=== PATIENT | female | born 1940 | race Caucasian/White ===

== ENCOUNTER 2025-04-18 19:56 | Inpatient (IN) | payer MEDICARE ==
[~2025-04-18] VITALS: Ht 167.6 cm; Wt 64.9 kg
[~2025-04-18 19:56] MED LIST: BUPROPION XL150 MG PO; CITALOPRAM HBR20 MG PO; OMEPRAZOLE20 MG PO; SYNTHROID88 MCG PO; ZOCOR20 MG PO
[2025-04-18 20:29] LABS: BASOPHILS 0.5 % (0.1-1.2); EOSINOPHILS 0.9 % (0.7-5.8); LYMPHOCYTES 11.5 % (19.3-51.7); MCH 28.7 PG (25.6-32.2); MCHC 33.1 g/dL (32.2-35.5); MCV 86.8 fL (79.4-94.8); MONOCYTES 7.4 % (4.7-12.5); NEUTROPHILS 79.4 % (34.0-71.1); RBC 4.32 M/uL (3.93-5.22)
[2025-04-18 20:36] LABS: ALT (SGPT) 15.0 U/L (14-59); AST (SGOT) 13.0 U/L (15-37); GLOMERULAR FILTRATION RATE,EST 42.0 mL/min (>60); PROTEIN, TOTAL 6.2 g/dL (6.4-8.2); UREA NITROGEN 21.0 mg/dL (7-18)
[2025-04-18] MEDS ORDERED: LACTATED RINGER'S 1,000 ML IV ONE (21:00)
[2025-04-18] MEDS ORDERED: LACTATED RINGER'S 1,000 ML IV SCH ×2 (22:00→22:15)
[2025-04-18] MEDS ORDERED: fentaNYL citrate 100 MCG/2 ML VIAL IV ONE (22:00)
[2025-04-18] MEDS ORDERED: PANTOPRAZOLE SODIUM 40 MG TABEC PO ONE (22:00)
[2025-04-18] MEDS ORDERED: SUCRALFATE 1 GM TAB PO ONE (22:00)
[2025-04-18] MEDS ORDERED: HYDROmorphone HCL 1 MG/ML SYR IV PRN (22:15)
[2025-04-18 22:17] LABS: BLOOD/HGB, URINE NEGATIVE (Negative); KETONE, URINE TRACE (Negative); LEUK ESTERASE, URINE NEGATIVE (negative); NITRITE, URINE NEGATIVE (negative)
[2025-04-18 22:41] VITALS: BP 145/83
--- NOTE | 2025-04-18 23:31 | NUR ---
THIS RN TO ED APPROX 2230 TO RECEIVE BEDSIDE REPORT. PT TX TO ROOM 112 VIA STRETCHER BY THIS RN. PT ALERT AND ORIENTED. ABLE TO TRANSFER SELF FROM STRETCHER TO BED. VS OBTAINED. IVF INFUSING WNL. ADMISSION COMPLETE. PT REPORTS ABD PAIN IMPROVED AFTER PRN ADMIN. NO C/O NAUSEA AT THIS TIME. BOWEL TONES ACTIVE. ABD SOFT. PT NPO. VERBALIZES UNDERSTANDING. ORAL CARE SUPPLIES PROVIDED. PT ORIENTED TO ROOM AND NURSE CALL LIGHT. PT DENIES QUESTIONS OR CONCERNS. CALL LIGHT IN REACH. BED ALARM FOR SAFETY.
[2025-04-19] VITALS (13 sets, daily range): BP systolic 120–152; BP diastolic 57–80
--- NOTE | 2025-04-19 00:47 | NUR ---
PT RESTING IN BED WITH EYES CLOSED. RESPIRATIONS EVEN. CALL LIGHT IN REACH.
--- NOTE | 2025-04-19 02:15 | NUR ---
CALL LIGHT ANSWERED. PT UP TO BR WITH FWW AND SBA TO VOID. GAIT STEADY. BACK TO BED, JINA WELL. NO C/O PAIN OR NAUSEA AT THIS TIME. PT REPORTS TENDERNESS/PAIN IN LEFT AC WHERE IV IS PLACED. DIME SIZE BRUISE NOTED AT INSERTION SITE. IV DC'D PER PT REQUEST. TIP INTACT. 20G PLACED IN RIGHT FOREARM X 1 ATTEMPT. PT JINA WELL. IVF RESUMED. NO FURTHER NEEDS AT THIS TIME. CALL LIGHT IN REACH. BED ALARM FOR SAFETY.
--- NOTE | 2025-04-19 04:53 | NUR ---
PT RESTING IN BED WITH EYES CLOSED. RESPIRATIONS EVEN. CALL LIGHT IN REACH.
[2025-04-19 05:32] LABS: BASOPHILS 0.8 % (0.1-1.2); EOSINOPHILS 1.8 % (0.7-5.8); LYMPHOCYTES 20.4 % (19.3-51.7); MCH 28.8 PG (25.6-32.2); MCHC 33.0 g/dL (32.2-35.5); MCV 87.2 fL (79.4-94.8); MONOCYTES 10.1 % (4.7-12.5); NEUTROPHILS 66.7 % (34.0-71.1); RBC 3.99 M/uL (3.93-5.22)
--- NOTE | 2025-04-19 05:39 | NUR ---
LAB IN FOR MORNING DRAW. PT UP TO BR WITH FWW AND SBA TO VOID AN UNMEASURED AMOUNT BACK TO BED, JINA WELL. REPORTS ABD PAIN TOLERABLE 2/10. DENIES NAUSEA. PREVIOUS IV SITE IN LEFT AC BEGAN BLEEDING A SMALL AMOUNT WHILE PT UP TO BR. THIS RN HELD PRESSURE TO SITE FOR SEVERAL MINUTES UNTIL BLEEDING NO LONGER NOTED THEN WRAPPED SITE IN GUAZE AND [place]. VS AND I&O OBTAINED. PT DENIES FURTHER NEEDS. CALL LIGHT IN REACH.
[2025-04-19 05:48] LABS: ALT (SGPT) 17.0 U/L (14-59); AST (SGOT) 13.0 U/L (15-37); GLOMERULAR FILTRATION RATE,EST 53.0 mL/min (>60); PROTEIN, TOTAL 5.6 g/dL (6.4-8.2); UREA NITROGEN 17.0 mg/dL (7-18)
--- NOTE | 2025-04-19 06:47 | NUR ---
CALL LIGHT ANSWERED. PT INCONTINENT OF LARGE AMOUNT LIQUID BROWN BM. UP TO BR WITH FWW AND SBA. PT ABLE TO DO OWN KASIA CARE. CLEAN GOWN, BRIEF, AND SOCKS PROVIDED. BACK TO BED. PT REPORTS ABD PAIN/HEADACHE PAIN 03/09. PRN FOR PAIN ADMIN PER EMAR. NO FURTHER NEEDS. CALL LIGHT IN REACH.
--- NOTE | 2025-04-19 07:39 | NUR ---
Patient in bed resting, no distress, respirations non labored.
[2025-04-19] MEDS ORDERED: LEVOTHYROXINE100 MCG PO (07:56)
--- NOTE | 2025-04-19 08:03 | NUR ---
PATIENT LAYING IN BED A WARM WASH CLOTH WAS PROVIDED. PATIENT DECLINED TO GET INTO CHAIR AND BRUSH TEETH. PATIENTS CALL LIGHT IS WITHIN REACH AND NO FURHER NEEDS AT THIS TIME.
[2025-04-19] MEDS ORDERED: SUCRALFATE 1 GM TAB PO SCH ×2 (09:00→16:00)
[2025-04-19] MEDS ORDERED: PANTOPRAZOLE SODIUM 40 MG/10 ML VIAL IV SCH (09:00)
[2025-04-19] MEDS ORDERED: LIDOCAINE HCL 2% 5 ML SDV ONE (09:14)
[2025-04-19] MEDS ORDERED: HYDROmorphone HCL 1 MG/ML SYR IV PRN (09:15)
[2025-04-19] MEDS ORDERED: LACTATED RINGER'S 1,000 ML IV SCH (09:15)
--- NOTE | 2025-04-19 09:16 | NUR ---
UNABLE TO SEE PATIENT AT THIS TIME, TAKEN TO SURGERY.
--- NOTE | 2025-04-19 10:16 | NUR ---
Patient back from EGD study. Patient is awake, alert and oriented x3, no acute distress. Head of bed elevated, airway patent, no respiratory distress noted. Patient oriented to room and call light. Bed alarm intact.
--- NOTE | 2025-04-19 10:24 | NUR ---
UR CLINICAL REVIEW: 2 MN FOR VERSALUS-PER SHALE PLANER OPERATOR MEETS INPT FOR DUODENAL ULCER/HIATAL HERNIA WITH NEED FOR PAIN CONTROL, SURGICAL CONSULT AND POSSIBLE PROCEDURE [facility] INPT 04/19/25 @ 0202 EMAIL SENT TO UPDATE REG CLINICALS FAXED TO [facility] FOR AUTH REVIEW DISCHARGE HOME WHEN MEDICALLY STABLE
--- NOTE | 2025-04-19 10:52 | NUR ---
04/19/25 1052 Mabel Bryson 0942- PT PRESENTS TO PACU, LEFT LATERAL POSITION, NON REACTIVE TO STIMULUS. PT BREATHING EVEN AND NON LABORED, 4L O2 PER NC. LR INFUSING TO RFA IV. ABD SOFT, NON DISTENDED. ALL MONITORS IN PLACE. 0950- PT STARTING TO STIR, OPENS EYES SLIGHTLY, REORIENTED TO TIME AND PLACE, PT BACK TO RESTING. 0952- MOVED TO ROOM AIR AT THIS TIME. 1000- DR WRAY AT BEDSIDE TO DISCUSS FINDINGS. PT WAKES EASILY TO VERBAL STIMULI. DENIES PAIN OR NAUSEA. 1012- PT TAKEN BACK TO ROOM 112 ON MED/SURG, IN ROOM. PT MOVED ACROSS FROM STRETCHER TO BED WITH MEDIA ANALYTICS MANAGER ASSISTANCE. LR TKO TO RFA. VITALS OBTAINED. REPORT AT BEDSIDE TO JUAN SALEH, CARE OF PT TURNED OVER AT THIS TIME.
--- NOTE | 2025-04-19 10:55 | NUR ---
PT NOT AVAILABLE FOR VISIT. PROVIDED PRAYER.
--- NOTE | 2025-04-19 11:04 | NUR ---
ALERT AND ORIENTED IN BED. STATES SHE LIVES IN HOUSE WITH HER . THEY HAVE STAIRS BUT THEY ARE NOT AN ISSUE FOR PATIENT. SHE USES A CANE TO AMBULATE. SHE DRIVES AT [place]. DENIES ANY DIFFICULTY PAYING UTILITIES OR FOR FOOD OR MEDICATIONS. STATES SHE PLANS TO DC TO HOME WITH SPOUSE WHEN MEDICALLY READY. DOES NOT HAVE PCP, DOES NOT WANT CASE MANAGEMENT GETTING HER A PCP BECAUSE SHE HAS NAMES OF PROVIDERS SHE WANTS TO TRY TO SEE, BUT CAN NOT REMEMBER THEIR NAMES AT THIS TIME. NURSING STAFF UPDATED.
--- NOTE | 2025-04-19 11:05 | NUR ---
Patient awake, alert and oriented x3, no distress. Vital signs stable, sp02 99%.
--- NOTE | 2025-04-19 11:13 | NUR ---
PATIENT IS LAYING IN BED. CALL LIGHT IS WITHIN REACH AND NO FURTHER NEEDS AT THIS TIME.
[2025-04-19] MEDS ORDERED: PHARMACY RENAL DOSE ADJUSTMENT 1 DOSE MISC PO SCH (12:00)
--- NOTE | 2025-04-19 13:12 | NUR ---
PATIENT WAS ASSISTED SBA TO THE CHAIR. PATIENTS VITAL SIGNS AND I&OS WERE DONE. PATIENTS CALL LIGHT IS WITHIN REACH AND NO FURTHER NEEDS AT THIS TIME.
--- NOTE | 2025-04-19 13:20 | NUR ---
PT CALLED FOR PAIN MEDICATION R/T NECK PAIN. PT MEDICATED WITH 0.5MG IV DILAUDID. PT WITH C/O WAITING FOR DR. WRAY, NOT WANTING TO STAY AT HOSPITAL ANY LONGER AND "JUST WALKING OUT". PT INSTRUCTED THIS RN WOULD NOT PROVIDE IV PAIN MEDICATION IF HER DEPARTURE WAS IMMINENT. PT AGREED TO STAY, BUT WANTING TO SEE DR. WRAY NOW, INSTRUCTED DR. WRAY WOULD BE COMING TO SEE HER SOON HE WAS ABLE. PT ALSO UPSET I DID NOT HAVE "LITTLE YELLOW PILLS" FOR HER STOMACH. INSTRUCTED PATIENT HER PRIMARY RN WOULD BE IN TO SEE HER AND FOLLOW UP ON HER C/O'S AND PROVIDE ANY ADDITIONAL INFORMATION AVAILABLE.
--- NOTE | 2025-04-19 14:19 | NUR ---
CALL TO DR. GARCIA, PATIENT TO HAVE FENTANYL FOR PAIN.
[2025-04-19] MEDS ORDERED: fentaNYL citrate 100 MCG/2 ML VIAL IV PRN (14:30)
--- NOTE | 2025-04-19 14:33 | NUR ---
PATIENT GIVEN 4MG OF IV ZOFRAN FOR NAUSEA. 12.5 MCG OF IV FENTANYL FOR 5/10 ABD PAIN. PATIENT REPORTS THAT "MY HEAD IS MESSED UP." SHADE PULLED, PATIENT IS IRRITABLE TO VISITING WITH STAFF. PATIENT HAS EMESIS BAG, REPORTS FEELING LIKE SHE SHOULD THROW UP. ENCOURAGED PATIENT TO STOP TAKING IN AYTHING PO FOR NOW.
--- NOTE | 2025-04-19 14:40 | CONS ---
[facility] [address], [place] [address] Signed DATE OF CONSULTATION: 04/19/2025 REQUESTING PHYSICIANS: Dr. Palmer and Dr. Starkey. PROBLEM: Intractable epigastric pain, duodenal ulcer on CT. HISTORY: This 84-year-old white woman lives in [place] and gets much of her health care elsewhere. This includes [place] by Dr. Whaley. She says she came to the hospital with severe epigastric pain. I was called at approximately 11:00 p[address] last night by Dr. Starkey noting that the patient had persistent and worsening epigastric pain starting approximately 10 p.m. the day before without associated vomiting. CT scan was performed which showed complex findings of a thickening of the gastric antrum and the 1st portion of the duodenum and inflammation and edema nearby consistent with gastritis and duodenitis and a broad and deep ulcer ulcer involving the anterior wall of 1st portion of the duodenum (duodenal bulb). Consider 1.6 cm extending through the majority of the duodenal wall without andre perforation. Additionally, a large hiatal hernia was identified with much of the stomach within the intrathoracic space. The patient does describe bloating and fullness long-standing likely related to a chronic significant hiatal hernia. The patient tells me she was due to see a expansion joint finisher in [place] (?) I recommended that the patient be admitted, given PPI medication as well as Carafate as regard to the treatment of duodenal ulcer and consideration for upper endoscopy as well. PAST MEDICAL HISTORY: Notable for long-standing gastroesophageal reflux, hypotension and anxiety. MEDICINES: Include: 1. Omeprazole. 2. Simvastatin. 3. Bupropion. 4. Synthroid. ALLERGIES: She has allergy to morphine. SURGICAL HISTORY: Electronically Signed By: DEBORAH WRAY MD 04/19/25 1440 PATIENT NAME: JUAN DORSEY CONSULTATION DATE OF : 44 REPORT #: [id number] PHYSICIAN: DEBORAH WRAY MD PCP: NO PRIMARY CARE PHYSICIAN REPORT IS CONFIDENTIAL AND NOT TO BE RELEASED WITHOUT AUTHORIZATION [facility] [address], [place] [address] Signed Includes bilateral "lumpectomy" and hysterectomy. She does not smoke or use alcohol particularly. Notably, she was seen in the emergency room at [facility] three years ago and said to have an "infection" related to the abdomen. I suspect this was related to diverticulitis. SOCIAL HISTORY: She is . I am familiar with her on whom I have performed a hernia repair. She lives in [place]. REVIEW OF SYSTEMS: She has improved since admission to the hospital with IV fluids, pain medication and antiulcer treatment. Denies any shortness of breath or cardiac type chest pain. PHYSICAL EXAMINATION: GENERAL: Pleasant white woman, who does not appear to be in distress at this time. BMI is 23.1. NECK: Trachea is midline. She has no crepitus. CHEST: Clear. HEART: Regular without murmur. ABDOMEN: Soft and without focal tenderness or ascites. EXTREMITIES: Show no clubbing, cyanosis, or edema. VITAL SIGNS: On presentation, vital signs showed a pulse of 65, a blood pressure of 157 systolic, temperature 98.1. ASSESSMENT: I have reviewed the CT scan images in detail. I am unable to visualized the extent of the stomach within the intrathoracic space on the coronal images, though the transverse images (axial images) certainly confirm some portion of stomach within the thoracic cavity. The area described as ulceration within the bulbar duodenum is uncertain on my exam. I will need to review it with the radiologist more fully. Nevertheless, I would recommend upper endoscopy be performed to assure this does represent a duodenal ulcer rather than a gastric one, in which case neoplastic change would have to be considered. She is currently on appropriate therapy at this time. It sounds as though she does have significant symptoms even prior to her admission at this time related to intrathoracic stomach and operative reduction of such a problem would certainly be within the realm of possibility. We discussed that as well. There may be added risks of upper endoscopy in her case given the apparently thin walled nature of her bulbar ulcer. All due care will be taken of course to avoid traumatic injury to the ulcer base itself or elsewhere in the stomach. The risk of this including the risk of bleeding, infection, and so forth were reviewed with her, she understands. Electronically Signed By: DEBORAH WRAY MD 04/19/25 1440 PATIENT NAME: JUAN DORSEY CONSULTATION DATE OF : 44 REPORT #: [id number] PHYSICIAN: DEBORAH WRAY MD PCP: NO PRIMARY CARE PHYSICIAN REPORT IS CONFIDENTIAL AND NOT TO BE RELEASED WITHOUT AUTHORIZATION [facility] [address], [place] [address] Signed We will plan to do this morning. Deborah Wray MD JM/MODL /[id number] cc: Dr. Whaley in [place] Dr. Estela Starkey Copies: ~ Electronically Signed By: DEBORAH WRAY MD 04/19/25 1440 PATIENT NAME: CYNTHIA DORSEYCARMELA Nash CONSULTATION DATE OF : 44 REPORT #: [id number] PHYSICIAN: DEBORAH WRAY MD PCP: NO PRIMARY CARE PHYSICIAN REPORT IS CONFIDENTIAL AND NOT TO BE RELEASED WITHOUT AUTHORIZATION
--- NOTE | 2025-04-19 14:40 | OR ---
[facility] [address], [place] [address] Signed DATE OF OPERATION: 04/19/2025 SURGEON: Deborah Wray MD PREOPERATIVE DIAGNOSES: 1. Severe epigastric pain with 1.8 cm deep anterior duodenal bulb ulcer (CT scan). 2. Large complex hiatal hernia (stomach above diaphragm). POSTOPERATIVE DIAGNOSES: 1. Duodenal ulcer with area of bleeding (secured). 2. Complex hiatal hernia. PROCEDURE: Esophagogastroduodenoscopy with control of bleeding with hemoclip and biopsies, stomach and esophagus. ANESTHESIA: Intravenous sedation propofol. Yonathan Santana CRNA. INDICATION: This 84-year-old white woman is a patient of Dr. Palmer who was admitted her from the ER last night with severe epigastric pain. The patient has been on PPI medication for over 30 years and does have episodes of bloating fullness and occasions of mild dysphagia. A CT scan was performed under the direction of Dr. Starkey which showed what was considered a 1.8 cm anterior duodenal bulb ulcer with very thin serosal covering as well as most of the stomach within the intrathoracic area. She was admitted, given intravenous PPI medication and started on Carafate orally. Her symptoms have improved. I saw her earlier this morning and I have recommended upper endoscopy be performed to better affirm the peptic ulcer problem and in particular to assess for other abnormalities of the stomach and assess for H pylori. The risk of bleeding, infection, and most importantly perforation were reviewed with her. She understands and wished to proceed. FINDINGS: Esophagus itself had mild chronic inflammation. Stomach was indeed herniated well above the diaphragm and complicated to negotiate generally speaking. Ultimately, the pylorus was identified and the scope passed through that into the duodenum. There was an ulcerated area in one area of oozing of blood that was bright red with possibly visible vessel. This was secured with a hemoclip. I did not pass the scope far down the duodenum given the radiologic findings. The ulcer, though significant, did not have as Electronically Signed By: DEBORAH WRAY MD 04/19/25 1440 PATIENT NAME: JUAN DORSEY OPERATIVE REPORT DATE OF : 44 REPORT #: [id number] PHYSICIAN: DEBORAH WRAY MD PCP: NO PRIMARY CARE PHYSICIAN REPORT IS CONFIDENTIAL AND NOT TO BE RELEASED WITHOUT AUTHORIZATION [facility] [address], [place] [address] Signed deep as an appearance as I suspected it would based on imaging study. Biopsies of the antrum which showed mild chronic inflammation were obtained as was the esophagus and a CLOtest biopsy also performed which was negative 15 minutes postprocedure. DESCRIPTION OF PROCEDURE: The patient was brought to endoscopy suite, given lidocaine hypopharyngeal anesthesia and placed in lateral decubitus position. She was given intravenous sedation with propofol infusional technique with continuous cardiopulmonary monitoring. A bite block was placed. The Olympus video upper endoscope was passed in the hypopharynx. The vocal cords were normal. Scope was passed in the esophagus which throughout its length was reasonably normal. There was no Jett's epithelium particularly. The scope was advanced to the stomach which was insufflated with air, but with minimal air only so as to minimize chances of perforation of the presumably thin-walled duodenal ulcer. Rugal folds were reasonably normal. Complex anatomy was noted. Ultimately, the pylorus area could be identified with various manipulations and scope gently passed into the duodenal. Immediately noted was ulcerated area which was certainly significant. Pushing the scope beyond this was deemed inadvisable. An area of heaped up mucosa with bright red blood that was slightly dripping was identified. This was secured with a hemoclip completely. Irrigation was undertaken. There was no sign of further bleeding or other problem. There was no sign of actual neoplasia so far as could be told. A biopsy was not obtained. The scope was then withdrawn to the antrum and biopsies taken there for both CHELSIE and pathologic testing. Retroflexed view confirmed the complex nature of the hiatal hernia with essentially all the stomach above the diaphragm. The scope was withdrawn to the distal esophagus where biopsies were obtained and ultimately the midesophagus as well. Scope was removed and the patient was taken to the recovery room in good condition. CONCLUSION DIAGNOSES: 1. Oozing of complex duodenal ulcer secured with hemoclip. 2. Complex hiatal hernia, stomach above the diaphragm. PLAN: We will continue PPI and additionally add Carafate. Full liquid diet would be appropriate. I will ultimately recommend that the hiatal hernia be repaired though would certainly want for the duodenal ulcer to heal entirely first. Relationship between the ulcer and the intact position of the stomach is of uncertain relationship. There may be some affect from the complex hiatal hernia to development of duodenal ulceration, particularly since she has been on a PPI medication continuously. We will review this further. Electronically Signed By: DEBORAH WRAY MD 04/19/25 1440 PATIENT NAME: JUAN DORSEY OPERATIVE REPORT DATE OF : 44 REPORT #: [id number] PHYSICIAN: DEBORAH WRAY MD PCP: NO PRIMARY CARE PHYSICIAN REPORT IS CONFIDENTIAL AND NOT TO BE RELEASED WITHOUT AUTHORIZATION [place] [address] Signed MD TG Yi/MODL /[id number] cc: MD Charles Clay MD Brian Sabowitz, MD Copies: CHARLES RAMOS MD ~ Electronically Signed By: DEBORAH WRAY MD 04/19/25 1440 PATIENT NAME: JUAN DORSEY OPERATIVE REPORT DATE OF : 44 REPORT #: [id number] PHYSICIAN: DEBORAH WRAY MD PCP: NO PRIMARY CARE PHYSICIAN REPORT IS CONFIDENTIAL AND NOT TO BE RELEASED WITHOUT AUTHORIZATION
--- NOTE | 2025-04-19 15:17 | NUR ---
Patient sitting up in chair, she is anxious and reporting throat pain. Scheduled carafate admin at this time. Patient provided with warm blanket and ice pack for comfort. at bedside.
[2025-04-19] MEDS ORDERED: phenoL 177 ML SPRAY MT PRN ×2 (15:45)
[2025-04-19] MEDS ORDERED: SIMVASTATIN40 MG PO (17:04)
--- NOTE | 2025-04-19 17:22 | NUR ---
PATIENT WAS ASSISTED FROM THE CHAIR TO THE BATHROOM TO THE BED. PATIENTS VITAL SIGNS AND I&OS WERE DONE. BRIEF WAS CHANGED. PATIENTS CALL LIGHT IS WITHIN REACH AND NO FUTHER NEEDS AT THIS TIME.
[2025-04-19 18:01] LABS: BASOPHILS 0.4 % (0.1-1.2); EOSINOPHILS 0.9 % (0.7-5.8); LYMPHOCYTES 11.1 % (19.3-51.7); MCH 28.4 PG (25.6-32.2); MCHC 32.0 g/dL (32.2-35.5); MCV 88.8 fL (79.4-94.8); MONOCYTES 6.7 % (4.7-12.5); NEUTROPHILS 80.5 % (34.0-71.1); RBC 4.54 M/uL (3.93-5.22)
--- NOTE | 2025-04-19 18:02 | NUR ---
Patient resting in bed, easily wakes to verbal stimuli. Patient reports she has no pain at this time. She also states "I'm not in pain, i'm just nuts!". Patient encouraged to rest. Bed alarm intact. Iv patent, fluids infusing per order.
--- NOTE | 2025-04-19 18:46 | NUR ---
Patient's son Phillip stopped by to check on patient, updated him regarding plan of care. Patient's at bedside with patient. No further needs, personal supplies and call light within reach.
--- NOTE | 2025-04-19 19:53 | NUR ---
PT RESTING IN BED, RESPIRATION EVEN AND UNLABORED. NO NEEDS NOTED AT THIS TIME. CALL LIGHT IN REACH.
--- NOTE | 2025-04-19 20:34 | NUR ---
GRADUATE STUDIES DEAN CBA PT WITH FWW TO BATHROOM. PT VOIDED AND ASSISTED BACK TO BED. VITALS AND I&O OBTAINED. PT GIVNE WARM BLANKET UPON REQUEST. PT STATES NO FURTHER NEEDS AT THIS TIME. CALL LIGHT WITHIN REACH AND BED ALARM ON.
--- NOTE | 2025-04-19 21:24 | NUR ---
PT IN BED, DUE MEDICATIONS GIVEN ORDERED, NO COMPLAINT OF PAIN. DENIES NEED AT THIS TIME. CALL LIGHT IN REACH.
--- NOTE | 2025-04-19 22:33 | NUR ---
CALL LIGHT ANSWERED. PT NEEDED TO USE BATHROOM. TRACTOR TECHNICIAN SBA/1PA WITH FWW TO BATHROOM. PT VOIDED AND ASSISTED BACK TO BED. PT STATES NO FURTHER NEEDS AT THIS TIME. CALL LIGHT WITHIN REACH AND BED ALARM ON.
--- NOTE | 2025-04-19 23:44 | NUR ---
PT ASLEEP IN BED, RESPIRATIONS EVEN AND UNLABORED. NO NEEDS NOTED AT THIS TIME. CALL LIGHT IN REACH.
[2025-04-20] VITALS (10 sets, daily range): BP systolic 103–151; BP diastolic 42–69
--- NOTE | 2025-04-20 01:40 | NUR ---
IN ROOM IN RESPONSE TO IV PUMP ALARMING, NEW IV BAG HUNG. PATIENT UP TO RESTROOM PER REQUEST WITH MINIMAL SBA TO VOID. BACK TO BED WITHOUT DIFFICULTY, VS OBTAINED AND RECORDED, INTAKE AND OUTPUT DOCUMENTED. FRESH WATER GIVEN PER REQUEST. NO FURTHER NEEDS, BED ALARM ON, CALL LIGHT IN REACH
--- NOTE | 2025-04-20 03:46 | NUR ---
PT RESTING IN BED. RESPIRATIONS EVEN AND UNLABORED. NO NEEDS NOTED AT THIS TIME. CALL LIGHT IN REACH.
--- NOTE | 2025-04-20 05:07 | NUR ---
CALL LIGHT ANSWERED. PT NEEDED TO USE BATHROOM. CAN SBA WITH FWW TO BATHROOM. PT VOIDED AND ASSISTED BACK TO BED. VITALS AND I&O OBTAINED. PT STATES NO FURTHER NEEDS AT THIS TIME. CALL LIGHT WITHIN REACH AND BED ALARM ON.
[2025-04-20 05:34] LABS: BASOPHILS 0.4 % (0.1-1.2); EOSINOPHILS 1.7 % (0.7-5.8); LYMPHOCYTES 22.2 % (19.3-51.7); MCH 28.9 PG (25.6-32.2); MCHC 33.2 g/dL (32.2-35.5); MCV 86.9 fL (79.4-94.8); MONOCYTES 9.4 % (4.7-12.5); NEUTROPHILS 66.1 % (34.0-71.1); RBC 3.67 M/uL (3.93-5.22)
[2025-04-20 05:44] LABS: GLOMERULAR FILTRATION RATE,EST 61.0 mL/min (>60); UREA NITROGEN 11.0 mg/dL (7-18)
--- NOTE | 2025-04-20 06:34 | NUR ---
CALL LIGHT ANSWERED, PATIENT AMBULATED WELL TO RESTROOM WITH MINIMAL SBA AND USE OF FWW. BACK TO BED WITHOUT DIFFICULTY, IV FLUIDS INFUSING WITHOUT DIFFICULTY. PATIENT DENIES FURTHER NEEDS, CALL LIGHT IN REACH
--- NOTE | 2025-04-20 07:21 | NUR ---
Pt report received from THERESE Phillips and THERESE Alvarez. Pt is resting supine in bed with eyes closed, breathing regular, even, and non-labored. White board updated at this time. CPOX on, SPO2 97% on room air. Side rails up x4, call light in reach.
--- NOTE | 2025-04-20 09:45 | NUR ---
PATIENT RESTING IN BED. HOPING TO GO HOME SOON. PATIENT REFUSED US GETTING HER A PCP. PATIENT TO TAKE HER HOME WHEN MEDICALLY CLEARED. NO FUTHER CM NEEDS.
--- NOTE | 2025-04-20 09:50 | NUR ---
PATIENT IN BED AT THIS TIME. PHILIPPE JAEGER CHARTED VITALS AND I&O'S. CALL LIGHT WITHIN REACH, NO FURTHER NEEDS AT THIS TIME.
[2025-04-20] MEDS ORDERED: ALEVE220 MG PO (10:31)
[2025-04-20] MEDS ORDERED: SYMBICORT 80-10.2 GM INH (10:32)
--- NOTE | 2025-04-20 10:32 | NUR ---
MED REC COMPLETE
--- NOTE | 2025-04-20 12:33 | NUR ---
In with pt for IV Pump alarming, complete. New bag of IVF hung and started at ordered rate per emar. IV site is patent. Pt requests hot pack for low back pain from "sitting around". Encouraged pt to ambulate. She states she would like to after lunch. Hot pack provided and wrapped in a towel and placed on pt's right side low back. Call light in reach, family in room, lunch tray on bedside table.
--- NOTE | 2025-04-20 13:59 | NUR ---
In with pt in response to call light. Pt needs to use the toilet. SBA as pt uses FWW (L&T mgmnt) into bathroom to void. Pt desires to walk the hallways afterwards. SBA, l&t mgmnt while pt ambulates the hallway using FWW. Intercepted by PT Dejah at this time. She took over. Pt tolerating ambulation well, no c/o dizziness or light headedness, no increased pain.
--- NOTE | 2025-04-20 14:06 | NUR ---
PATIENT IN CHAIR AT THIS TIME. PATIENT REFUSED SHOWER TODAY. CALL LIGHT WITHIN REACH, NO FURTHER NEEDS AT THIS TIME.
--- NOTE | 2025-04-20 14:29 | NUR ---
PATIENT IN CHAIR AT THIS TIME. OFFICE MOVER CHARTED VITALS AND I&O'S. CALL LIGHT WITHIN REACH, NO FURTHER NEEDS.
--- NOTE | 2025-04-20 16:35 | NUR ---
In with pt for med administration per emar. Pt is sitting up in her bed, visiting with guests. She is in a pleasant mood, laughing and smiling. Pt denies pain, no nausea or vomiting. Pt medicated per emar. Iced water refreshed. Pt provided with coffee, cream and sugar at this time. Call light in reach.
--- NOTE | 2025-04-20 17:10 | NUR ---
Dr. Cunningham in with pt. Pt sitting up in the chair at this time. He advised her that she can advance her diet to regular if tolerated. plating inspector Gabriela had already called the kitchen to order a regular tray for her. Call light in reach.
--- NOTE | 2025-04-20 18:34 | NUR ---
SBA as pt ambulated to the toilet to void (missed the hat). Pt ambulated back to the chair, tolerated activity well, tolerating her dinner well, no reports of nausea or pain. BLE elevated in chair, call light, personal belongings in reach.
--- NOTE | 2025-04-20 19:03 | NUR ---
PATIENT IN CHAIR AT THIS TIME. RECOVERY SPECIALIST CHARTED VITALS AND I&O'S. CALL LIGHT WITHIN REACH, NO FURTHER NEEDS.
--- NOTE | 2025-04-20 19:29 | NUR ---
REPORT RECEIVED FROM DAY SHIFT RN. PATIENT RESTING IN CHAIR. DENIES NEEDS AT THIS TIME. CALL LIGHT IN REACH.
--- NOTE | 2025-04-20 20:05 | NUR ---
PATIENT RESTING IN BED. VS AND I&Os OBTAINED AND RECORDED. PATIENT DENIES NEEDS AT THIS TIME. CALL LIGHT IN REACH. BED ALARM ON.
--- NOTE | 2025-04-20 21:26 | NUR ---
PATIENT RESTING IN BED. SCHEDULED MEDICATION ADMINISTERED. PATIENT DENIES FURTHER NEEDS. CALL LIGHT IN REACH.
[2025-04-20] MEDS ORDERED: ACETAMINOPHEN 500 MG TAB PO PRN (22:45)
--- NOTE | 2025-04-20 23:06 | NUR ---
PATIENT REPORTING 3/10 LOW BACK ACHE FROM "LAYING IN BED FOR 3 DAYS". NIO PLACED FOR PAIN MEDICATION. PRN PAIN MEDICATION ADMINISTERED. PATIENT DENIES FURTHER NEEDS. CALL LIGHT IN REACH.
--- NOTE | 2025-04-20 23:53 | NUR ---
PATIENT RESTING IN BED. DENIES FURTHER NEEDS AT THIS TIME. NO FURTHER NEEDS. CALL LIGHT IN REACH. BED ALARM ON.
--- NOTE | 2025-04-21 01:19 | NUR ---
CALL LIGHT ANSWERED. PATIENT UP TO BATHROOM INDEPENDENTLY TO VOID. PATIENT BACK TO BED. PATIENT HAS NO FURTHER NEEDS. CALL LIGHT IN REACH. BED ALARM ON.
[2025-04-21 04:39] VITALS: BP 140/58
[2025-04-21 04:43] VITALS: BP 140/58
--- NOTE | 2025-04-21 04:46 | NUR ---
CALL LIGHT ANSWERED. PATIENT UP TO BATHROOM INDEPENDENTLY TO VOID. PATIENT BACK TO BED. VS AND I&Os OBTAINED AND RECORDED. PATIENT DENIES NAUSEA OR PAIN. PATIENT DENIES FURTHER NEEDS. BED ALARM ON. CALL LIGHT IN REACH.
[2025-04-21 05:57] LABS: BASOPHILS 0.8 % (0.1-1.2); EOSINOPHILS 3.9 % (0.7-5.8); LYMPHOCYTES 36.8 % (19.3-51.7); MCH 29.0 PG (25.6-32.2); MCHC 33.3 g/dL (32.2-35.5); MCV 86.9 fL (79.4-94.8); MONOCYTES 12.0 % (4.7-12.5); NEUTROPHILS 46.5 % (34.0-71.1); RBC 3.66 M/uL (3.93-5.22)
[2025-04-21 06:18] LABS: GLOMERULAR FILTRATION RATE,EST 46.0 mL/min (>60); UREA NITROGEN 9.0 mg/dL (7-18)
--- NOTE | 2025-04-21 07:20 | NUR ---
Pt report received from THERESE Epstein. Pt is resting supine in bed, A&O. A.M. dose of carafate administered at this time by THERESE Epstein. White board updated. SBA as pt ambulated to bathroom to void and went back to bed. Call light in reach.
--- NOTE | 2025-04-21 08:33 | NUR ---
PATIENT IN BED AT THIS TIME. STEREO COMPILER CHARTED HOURLY ROUNDS, PATIENT REFUSED CHAIR AT THIS TIME. CALL LIGHT WITHIN REACH, NO FURTHER NEEDS.
[2025-04-21 09:41] VITALS: BP 153/79
--- NOTE | 2025-04-21 09:44 | NUR ---
PATIENT IN CHAIR AT THIS TIME. IT INSTRUCTOR CHARTED VITALS AND I&O'S. CALL LIGHT WITHIN REACH, NO FURTHER NEEDS AT THIS TIME.
--- NOTE | 2025-04-21 09:49 | NUR ---
INTO SEE PATIENT. IMM LETTER COMPLETED. PATIENT HAS FAMILY TO PICK HER UP AT TIME OF DISCHARGE. NO FUTHER CM NEEDS.
[2025-04-21 10:08] VITALS: BP 153/79
--- NOTE | 2025-04-21 10:30 | NUR ---
DISCHARGE REVIEW: ADVANCING DIET TOLERATED, IV FLUIDS, CARAFATE AND PROTONIX PLANS TO DC TO HOME WHEN MEDICALLY READY, LIKELY TODAY. ADD: 04/21/2025
--- NOTE | 2025-04-21 11:10 | NUR ---
Pt ambulating with physical therapy at this time.
--- NOTE | 2025-04-21 11:13 | PATH ---
[facility] [address], [place] [address] Signed SPECIMEN(S): A ANTRUM BIOPSY SPECIMEN(S): B DISTAL ESOPHAGEAL BIOPSY SPECIMEN(S): C MID ESOPHAGEAL BIOPSY SPECIMEN SOURCE: A. ANTRUM BIOPSY B. DISTAL ESOPHAGEAL BIOPSY C. MID ESOPHAGEAL BIOPSY CLINICAL HISTORY: Duodenal ulcer/duodenal ulcer; intrathoracic stomach FINAL PATHOLOGIC DIAGNOSIS: A. Antrum biopsy: - Benign gastric mucosa - Negative for active acute inflammation, intestinal metaplasia, dysplasia, or Helicobacter organisms by routine HE stain. B. Esophagus biopsy distal: - Benign squamous mucosa - Negative for glandular mucosa, intestinal metaplasia, dysplasia, or eosinophilia C. Esophagus biopsy mid: - Benign squamous mucosa - Negative for glandular mucosa, intestinal metaplasia, dysplasia, or eosinophilia BB MICROSCOPIC EXAMINATION: Histologic sections of all submitted blocks are examined by light microscopy. These findings, together with the gross examination, support the pathologic diagnosis. GROSS DESCRIPTION: A. The specimen, labeled and designated "Terrell Dorsey, 1." and designated on the requisition "antrum biopsy," is received in formalin and consists of two adams soft tissue fragments that measure 0.3 and 0.4 cm in greatest dimension. The specimen is entirely submitted in (A1). B. The specimen, labeled and designated "Terrell Dorsey, 2." and designated on the requisition "esophagus biopsy distal," is received in formalin and consists of two white-adams soft tissue fragments that measure 0.4 and 0.5 cm in greatest dimension. The specimen is entirely PATIENT NAME: JUAN DORSEY PATHOLOGY DATE OF : 44 REPORT #: [id number] PHYSICIAN: RICARDO MOLINA PCP: NO PRIMARY CARE PHYSICIAN REPORT IS CONFIDENTIAL AND NOT TO BE RELEASED WITHOUT AUTHORIZATION [facility] [address], [place] [address] Signed submitted in (B1). C. The specimen, labeled and designated "Jaylen, P, 3." and designated on the requisition "esophagus biopsy mid," is received in formalin and consists of one white-adams soft tissue fragment that measures 0.5 cm in greatest dimension. The specimen is entirely submitted in (C1). FB (under the direct supervision of a pathologist) The Gross Description was prepared using a voice recognition system. The report was reviewed for accuracy; however, sound-alike word errors, addition and/or deletions may occur. If there is any question about this report, please contact Client Services. ADDITIONAL NOTES: Immunohistochemical and/or in situ hybridization studies if performed in this case included appropriate positive controls that reacted as expected. This test was developed and its performance characteristics determined by [email or web address]. It has not been cleared or approved by the U.S. Food and Drug Administration. The FDA has determined that such clearance or approval is not necessary. This test is used for clinical purposes. It should not be regarded as investigational or for research. [email or web address] is certified under the Clinical Laboratory Improvement Amendments of 1988 (CLIA) as qualified to perform high complexity clinical laboratory testing. PERFORMING LABORATORY: Technical component was performed by [email or web address], [address] [place] [id number] (CLIA# [id number]). Professional interpretation was performed by [facility] - [address] [place] [id number] (CLIA#: [id number]). Diagnostician: Henry Vásquez MD Pathologist Electronically Signed 04/21/2025 Copies: ~ PATIENT NAME: JUAN DORSEY PATHOLOGY DATE OF : 44 REPORT #: [id number] PHYSICIAN: RICARDO PATHOLOGY PCP: NO PRIMARY CARE PHYSICIAN REPORT IS CONFIDENTIAL AND NOT TO BE RELEASED WITHOUT AUTHORIZATION
[2025-04-21] MEDS ORDERED: SUCRALFATE1 GM PO (11:20)
[2025-04-21] MEDS ORDERED: OMEPRAZOLE40 MG PO (11:22)
--- NOTE | 2025-04-21 11:45 | NUR ---
VISITED DURING SPIRITUAL CARE ROUNDS. PT INITIALLY STATED NO IMMEDIATE NEEDS. IN CONVERSATION, EXPRESSED CONCERN REGARDING CARING FOR WHO SHE BELEIVES IS DEVELOPING ALZHEIMERS, WONDERS IF CURRENT CONDITION IS PRODUCT OF STRESS. RECRUITMENT OFFICER ENSURED PT WAS AWARE OF [facility] SUPPORT GROUP, SUGGESTED RECONNECTING WITH KNOWN FRIEND IN SIMILAR CIRCUMSTANCES, PROVIDED SUPPORTIVE PRESENCE, PRAYER. PT EXPRESSED GRATITUDE, HOPE, INTENT TO SEEK SOCIAL CONNECTIONS.
--- NOTE | 2025-04-21 12:06 | NUR ---
FAXED TO OUTPATIENT THERAPY
--- NOTE | 2025-04-21 12:27 | NUR ---
Reviewed discharge paperwork, pt education, medications/prescriptions with pt who verbalized understanding and signed discharge form. Pt began to become tearful when talking about life at home and how she is worried for her because he has alzheimers and she has a recent diagnosis of parkinson's. She states that she has and is considering trying to find a way to move herself to [place] where her cousin has a home she can rent for cheap because she doesn't have any family here to help her and she has no women friends to talk to. She states when she had cancer twice, an elder from her [facility] stopped by the house to tell her that she needs to be in [employer] when she was home recuperating after a work day or treatment, which caused her to turn away from her [facility] family as she did not feel supported and they offered her no help in any form. Pt states she has spoken with Breanna Sosa today. I encouraged the pt to follow up with a pcp (her regular pcp is in [place] at the [facility], but she states he doesn't help her) and ask them about some resources for counseling or mental health. I contacted Breanna Sosa of [facility] just to touch base with her about what the pt discussed with me in the event she might have some resources available for her needs. She advised that the pt is aware of a caregiver support group here in the hospital a couple of Mondays a month. The pt did state she needs to attend those groups.
--- NOTE | 2025-04-21 12:32 | NUR ---
RECEIVED CALL FROM THERESE STAFFORD WHO STATED PT HAD BECOME TEARFUL, EXPRESSED THAT SHE HAD NOT FEMALE FRIENDS WITH WHOM TO TALK AND WAS LONELY. DROSSER THANKED RN FOR CALL, AND SUGGESTED RN REITERATE PREVIOUS ADVICE REGARDING [facility] SUPPORT GROUP. RN EXPRESSED SATISFACTION WITH INFORMATION PROVIDED.
--- NOTE | 2025-04-21 13:00 | NUR ---
Virgie Hill, is in with pt assisting her to get ready to depart. Pt stayed after discharge paperwork reviewed, so she could eat lunch.
[2025-04-21 13:03] VITALS: BP 176/70
== END 2025-04-21 13:04 | disposition home or self-care (01) | DRG 379 ==
LOC: ED 19:56 → MS 19:57
PROVIDERS: Internal Medicine; Surgery; ADMIT Student in an Organized Health Care Education/Training Program; ATTEND Student in an Organized Health Care Education/Training Program
PROC: 0W3P8ZZ Control Bleeding in Gastrointestinal Tract, Via Natural or Artificial Opening Endoscopic (ICD-10-PCS; 2025-04-19)
PROC: 0DB98ZX Excision of Duodenum, Via Natural or Artificial Opening Endoscopic, Diagnostic (ICD-10-PCS; principal; 2025-04-19 08:52)
DX: K26.4 Chronic or unspecified duodenal ulcer with hemorrhage (principal); E03.9 Hypothyroidism, unspecified; N18.9 Chronic kidney disease, unspecified; K21.9 Gastro-esophageal reflux disease without esophagitis; G20.A1 Parkinson's disease without dyskinesia, without mention of fluctuations; K44.9 Diaphragmatic hernia without obstruction or gangrene; E78.5 Hyperlipidemia, unspecified; Z66 Do not resuscitate; F41.9 Anxiety disorder, unspecified; Z90.710 Acquired absence of both cervix and uterus; Z88.5 Allergy status to narcotic agent; Z85.3 Personal history of malignant neoplasm of breast; Z79.890 Hormone replacement therapy; Z79.899 Other long term (current) drug therapy
CPT/HCPCS: 00731; 36415; 74177; 80048; 80053; 81003; 83690; 83735; 85025; 88305; 96361; 96375; 96376; 97161; 97165; 97530; A9270; C1889; G0378; J1171; J2003; J2405; J2470; J2704; J3010; J7121; Q9967

== ENCOUNTER 2025-04-28 19:17 | Observation (INO) | payer MEDICARE ==
[~2025-04-28] VITALS: Ht 167.6 cm; Wt 65.0 kg
[~2025-04-28 19:17] MED LIST changes: +ALEVE220 MG PO; +LEVOTHYROXINE100 MCG PO; +OMEPRAZOLE40 MG PO; +SIMVASTATIN40 MG PO; +SUCRALFATE1 GM PO; +SYMBICORT 80-10.2 GM INH
--- OUTSIDE RECORDS SUMMARY | 2025-04-28 19:19 | XMS ---
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 Nhi has no Care Guidelines for this patient. Maryann VISIT COUNT (12 MO.) 2 [facility] TOTAL 2 NOTE: Visits indicate total known visits. ED/C VISIT TRACKING (12 MO.) 04/28/2025 19:18 [facility] Emergency COMPLAINT: - ABDOM PAIN 04/18/2025 19:56 [facility] [place] TYPE: Emergency COMPLAINT: - ABDOMINAL PAIN INPATIENT VISIT TRACKING (12 MO.) 04/19/2025 09:15 [facility] [place] TYPE: Medical Surgical COMPLAINT: - DUODENAL ULCER DIAGNOSES: - Acquired absence of both cervix and uterus - Acquired absence of both cervix and uterus - Allergy status to narcotic agent - Allergy status to narcotic agent - Anxiety disorder, unspecified - Anxiety disorder, unspecified - Chronic kidney disease, unspecified - Chronic kidney disease, unspecified - Chronic or unspecified duodenal ulcer with hemorrhage - Chronic or unspecified duodenal ulcer with hemorrhage - Diaphragmatic hernia without obstruction or gangrene - Diaphragmatic hernia without obstruction or gangrene - Do not resuscitate - Do not resuscitate - Epigastric pain - Gastro-esophageal reflux disease without esophagitis - Gastro-esophageal reflux disease without esophagitis - Hormone replacement therapy - Hormone replacement therapy - Hyperlipidemia, unspecified - Hyperlipidemia, unspecified - Hypothyroidism, unspecified - Hypothyroidism, unspecified - Other alf (current) drug therapy - 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
[2025-04-28] MEDS ORDERED: FAMOTIDINE 20 MG/ 2 ML VIAL IV ONE (19:45)
[2025-04-28] MEDS ORDERED: fentaNYL citrate 100 MCG/2 ML VIAL IV ONE (19:45)
[2025-04-28] MEDS ORDERED: LACTATED RINGER'S 1,000 ML IV ONE (20:00)
[2025-04-28 20:08] LABS: BASOPHILS 0.3 % (0.1-1.2); EOSINOPHILS 0.1 % (0.7-5.8); LYMPHOCYTES 5.0 % (19.3-51.7); MCH 28.4 PG (25.6-32.2); MCHC 32.7 g/dL (32.2-35.5); MCV 86.7 fL (79.4-94.8); MONOCYTES 2.2 % (4.7-12.5); NEUTROPHILS 92.0 % (34.0-71.1); RBC 4.51 M/uL (3.93-5.22)
[2025-04-28 20:25] LABS: ALT (SGPT) 29.0 U/L (14-59); AST (SGOT) 19.0 U/L (15-37); GLOMERULAR FILTRATION RATE,EST 43.0 mL/min (>60); PROTEIN, TOTAL 6.9 g/dL (6.4-8.2); UREA NITROGEN 15.0 mg/dL (7-18)
[2025-04-28] MEDS ORDERED: PIPERACILLIN/TAZOBACTAM 4.5 GM in SODIUM CHLORIDE 0.9% 100 ML IV ONE (21:30)
[2025-04-28 21:51] LABS: BLOOD/HGB, URINE NEGATIVE (Negative); KETONE, URINE TRACE (Negative); LEUK ESTERASE, URINE NEGATIVE (negative); NITRITE, URINE NEGATIVE (negative)
[2025-04-28 21:59] LABS: LACTIC ACID, BLOOD 1.1 mmol/L (0.4-2.0)
--- NOTE | 2025-04-28 23:09 | NUR ---
2300 - PT ARRIVED FROM ER VIA STRETCHER, WALKED TO BED AND THEN BRP WITH 1PA. SLOW GAIT. ON ROOM AIR, ALERT AND ORIENTED, PLEASANT ACND COOPERATIVE.
[2025-04-28 23:13] VITALS: BP 167/71
[2025-04-28] MEDS ORDERED: fentaNYL citrate 100 MCG/2 ML VIAL IV PRN (23:15)
[2025-04-28] MEDS ORDERED: LACTATED RINGER'S 1,000 ML IV SCH (23:15)
--- NOTE | 2025-04-28 23:41 | NUR ---
Pt voided and had liquid bm on arrival, Tolerated well. Back to bed and was incontinent of large amount of semi liquid soft bm. skin care done. back to bed. then up to BSC again, having explossive semiliquid bm's. Aware of NPO status. Cooperative, oriented to room and procedures, stated understanding
[2025-04-29] VITALS (13 sets, daily range): BP systolic 129–167; BP diastolic 58–81
--- NOTE | 2025-04-29 00:21 | NUR ---
pt has been sitting on bsc til now, had a super, very large amount of semiliquid and some hard-formed bm skin care done. Back to bed, tolerated well, stated "My stomach does not hurts as much now". NPO does own oral care. Tele#[address], SR, IVF infusing w/o problems LAC. repositions self in bed, Pleasant and cooperative.
--- NOTE | 2025-04-29 01:35 | NUR ---
DIETITIAN RESEARCH OBTAINED VITALS AND I&O. PT STATES NO NEEDS AT THIS TIME. CALL LIGHT WITHIN REACH AND BED ALARM ON.
--- NOTE | 2025-04-29 01:55 | NUR ---
Awakens easily, no c/o abd pain at this time. NPO tolerating well, does own oral care with lemon swabs. IVF infusing w/o problems. Alarms in place. no n/v
--- NOTE | 2025-04-29 04:01 | NUR ---
RESTING, EYS CLOSED, NO S/SX DISTRESS. IVF INFUSING W/O PROBLEMS, REPOSITIONS SELF IN BED. ALARMS IN PLACE
--- NOTE | 2025-04-29 05:38 | NUR ---
ALERT AND ORIENTED. ON ROOM AIR. IVF INFUSING W/O PROBLEMS. UP TO BRP WITH 1PA/FWW, VOIDED LIGHT BOYD COLORED URINE. NO FURTHER BM'S AT THIS TIME, BACK TO BED, TOLERATED WELL. NO C/O ABD PAIN NPO DOES OWN ORAL CARE. BED ALARMS IN PLACE PER SAFETY,
[2025-04-29 05:39] LABS: BASOPHILS 0.2 % (0.1-1.2); EOSINOPHILS 0 % (0.7-5.8); LYMPHOCYTES 7.3 % (19.3-51.7); MCH 28.8 PG (25.6-32.2); MCHC 33.0 g/dL (32.2-35.5); MCV 87.4 fL (79.4-94.8); MONOCYTES 5.9 % (4.7-12.5); NEUTROPHILS 86.1 % (34.0-71.1); RBC 4.20 M/uL (3.93-5.22)
[2025-04-29 06:02] LABS: ALT (SGPT) 30.0 U/L (14-59); AST (SGOT) 17.0 U/L (15-37); GLOMERULAR FILTRATION RATE,EST 47.0 mL/min (>60); PROTEIN, TOTAL 6.0 g/dL (6.4-8.2); UREA NITROGEN 13.0 mg/dL (7-18)
[2025-04-29] MEDS ORDERED: ACETAMINOPHEN 325 MG TAB PO PRN (08:00)
[2025-04-29] MEDS ORDERED: LACTATED RINGER'S 1,000 ML IV SCH (08:00)
[2025-04-29] MEDS ORDERED: POLYETHYLENE GLYCOL 3350 1 PACKET PO PRN (08:00)
[2025-04-29] MEDS ORDERED: CIPROFLOXACIN 500 MG TAB PO SCH (09:00)
[2025-04-29] MEDS ORDERED: PANTOPRAZOLE SODIUM 40 MG TABEC PO SCH (09:00)
--- NOTE | 2025-04-29 09:54 | NUR ---
Patient awake, alert to self and place, no acute distress. Patient up to the restroom to void. Offered patient a walker, she declined. Patient tolerating clear liquids well, she denies nausea at this time. Patient reports mild abominal pain at this time.
--- NOTE | 2025-04-29 11:29 | NUR ---
Patient awake in bed visiting with family at bedside, no distress. Patient tolerating clear liquids well, no nause reported. Patient reports very minimal abdominal pain. Patient denies needs, fresh water/jello at bedside. Bed alarm intact, personal supplies and call light within reach.
[2025-04-29] MEDS ORDERED: PHARMACY RENAL DOSE ADJUSTMENT 1 DOSE MISC PO SCH (12:00)
--- NOTE | 2025-04-29 14:42 | NUR ---
PATIENT WAS IN HER BED RESTING AT THIS TIME, FLORICULTURE PROFESSOR ASSISTED PATIENT TO RESTROOM, CHARTED VITALS AND I&O'S, CALL LIGHT WITH IN REACH AND NOTHING ELSE NEEDED AT THIS TIME.
[2025-04-29] MEDS ORDERED: SUCRALFATE 1 GM TAB PO SCH (16:00)
--- NOTE | 2025-04-29 17:20 | NUR ---
Admin tylenol 650mg po for reports of 4/10 headache. Patient sitting up in chair watching tv, no acute distress. Patient denies needs, personal supplies and call light within reach.
--- NOTE | 2025-04-29 19:20 | NUR ---
in chair visiting with , dea c/o pain, on room air. aware of needing stool sample, fresh water given, no c/o pain
[2025-04-29] MEDS ORDERED: MELATONIN 3 MG TAB PO PRN (21:00)
--- NOTE | 2025-04-29 21:10 | NUR ---
Resting L side, on room air, pleasant and cooperative. lungs clear bilat, abd soft, corbin, LBM 04/29. aware of need for stool sample. voiding QS yellow urine, denies urinary problems. tolerating fluids well, IVF infusing LAC w/o problems. no c/o pain. uses walker in room.
--- NOTE | 2025-04-30 00:20 | NUR ---
Assisted Pt SBA/1PA FWW from bed to bathroom and back. Adjusted bedding. No other needs expressed by Pt. Bed alarm on and call light left in reach.
--- NOTE | 2025-04-30 00:29 | NUR ---
RESTING, EYES CLOSED, NO S/SX DISTRESS, IVF INFUSING W/O PROBLEMS. PT TURNS AND REPOSITIONS SELF IN BED
--- NOTE | 2025-04-30 04:12 | NUR ---
Used call light and bed alrm going off. Up to BRP, voided, no bm. no c/o abd pain, no n/v. 1PA/FWW IVF infusing, Back to bed toleratd well. Repositions self in bed.
[2025-04-30 05:14] LABS: BASOPHILS 0.9 % (0.1-1.2); EOSINOPHILS 2.1 % (0.7-5.8); LYMPHOCYTES 34.9 % (19.3-51.7); MCH 28.8 PG (25.6-32.2); MCHC 32.9 g/dL (32.2-35.5); MCV 87.5 fL (79.4-94.8); MONOCYTES 11.7 % (4.7-12.5); NEUTROPHILS 50.2 % (34.0-71.1); RBC 3.68 M/uL (3.93-5.22)
[2025-04-30 05:29] LABS: ALT (SGPT) 29.0 U/L (14-59); AST (SGOT) 16.0 U/L (15-37); GLOMERULAR FILTRATION RATE,EST 56.0 mL/min (>60); PROTEIN, TOTAL 5.4 g/dL (6.4-8.2); UREA NITROGEN 10.0 mg/dL (7-18)
[2025-04-30 06:05] VITALS: BP 150/60
[2025-04-30 06:07] VITALS: BP 150/60
--- NOTE | 2025-04-30 06:17 | NUR ---
Used call light. Up to BRP, voided, still no bm. aware of need for stool sample. IVF infusing w/o problems. 1PA/FWW, stting up position in bed. no c/o pain, no n/v
[2025-04-30] MEDS ORDERED: LEVOTHYROXINE SODIUM 100 MCG TAB PO SCH (07:00)
--- NOTE | 2025-04-30 07:35 | NUR ---
PT AWAKE AND WATCHING TV AT TIME OF SHIFT REPORT. DENIES DISCOMFORTS OR NEEDS OF. FRESH H20 TO BEDSIDE CALL LIGHT IN REACH
[2025-04-30] MEDS ORDERED: buPROPion HCL XL 150 MG TAB.XL.24H PO SCH (09:00)
--- NOTE | 2025-04-30 09:03 | NUR ---
BREAKFAST WELL TOLERATED PT DENIES DISCOMFORTS. SHE REPORTS PRIOR TO HOSPITALIZATION SHE WAS TAKING METAMUCIL CAPSULES AND EATING 4-5 OF THEM PER DAY. LATER REPORTS SHE WAS SUPPOSED TO BE TAKING MIRALAX BUT THOUGHT IT WAS THE SAME METAMUCIL. EDUCATION PROVIDED. PT REMAINS IN BED WATCHING TV
--- NOTE | 2025-04-30 10:23 | NUR ---
DR. ARMENDARIZ IN ROOM TO SEE PT. VERBAL ORDER RECIEVED TO DC IV FLUIDS. DR. ARMENDARIZ DISCUSSES KUB RESULTS WITH PT.
[2025-04-30 10:24] VITALS: BP 166/68
[2025-04-30] MEDS ORDERED: CIPROFLOXACIN500 MG PO (11:00)
[2025-04-30 11:15] VITALS: BP 166/68
--- NOTE | 2025-04-30 11:58 | NUR ---
PT DRESSES HERSELF REFUSING OFFER OF ASSIST. DC INSTRUCTIONS PROVIDED UNDERSTANDING VERBALIZED. PT WHEELED TO FRONT DOOR WHERE MET HER WITH THE CAR
== END 2025-04-30 11:45 | disposition home or self-care (01) ==
LOC: ED 19:17 → MS 19:19
PROVIDERS: Internal Medicine; ADMIT Student in an Organized Health Care Education/Training Program; ATTEND Student in an Organized Health Care Education/Training Program
DX: K52.9 Noninfective gastroenteritis and colitis, unspecified (principal); K59.09 Other constipation; J44.9 Chronic obstructive pulmonary disease, unspecified; F32.9 Major depressive disorder, single episode, unspecified; E03.9 Hypothyroidism, unspecified; E78.5 Hyperlipidemia, unspecified; K27.9 Peptic ulcer, site unspecified, unspecified as acute or chronic, without hemorrhage or perforation; N18.9 Chronic kidney disease, unspecified; K57.30 Diverticulosis of large intestine without perforation or abscess without bleeding; K44.9 Diaphragmatic hernia without obstruction or gangrene; Z66 Do not resuscitate; Z88.5 Allergy status to narcotic agent; Z79.890 Hormone replacement therapy; Z79.899 Other long term (current) drug therapy; Z90.710 Acquired absence of both cervix and uterus
CPT/HCPCS: 36415; 74018; 74177; 80053; 81003; 83605; 83630; 83690; 85025; 85651; 86140; 87040; 87045; 87046; 96361; 96365; 96375; 97161; 97530; 99285-25; A9270; G0378; J2405; J2543; J3010; J7121; Q9967

== ENCOUNTER 2025-07-20 12:10 | Day surgery (SDC) | payer MEDICARE ==
[~2025-07-20] VITALS: Ht 165.1 cm; Wt 62.7 kg
[~2025-07-20 12:10] MED LIST changes: +CIPROFLOXACIN500 MG PO; +IBLOOD GLUCOSE TEST STRIP 1 EA TEST VI PRN; +LACTATED RINGER'S 1,000 ML IV SCH; +LIDOCAINE HCL 1% 5 ML SDV INJ ONE; +LIDOCAINE HCL 4% 50 ML BTL TOP SCH
[2025-07-20] MEDS ORDERED: MAGNESIUM250 MG PO (12:39)
[2025-07-20] MEDS ORDERED: FISH OIL 1,2001 EACH PO (12:39)
[2025-07-20 12:40] VITALS: BP 139/80
[2025-07-20] MEDS ORDERED: VITAMIN B COMP1 EAC1 PO (12:40)
[2025-07-20] MEDS ORDERED: VITAMIN D350 MC3 PO (12:40)
[2025-07-20] MEDS ORDERED: MIDAZOLAM HCL 5 MG/5 ML VIAL ONE (15:02)
[2025-07-20] MEDS ORDERED: fentaNYL citrate 100 MCG/2 ML VIAL ONE (15:02)
--- NOTE | 2025-07-20 15:53 | NUR ---
07/20/25 1553 Keiko Pantoja 1543 PT TO PACU AWAKE DENIES PAIN AND NAUSA. DR WRAY AT BEDSIDE DISCUSSING PROCEDURE WITH PT.
[2025-07-20 16:25] VITALS: BP 143/82
--- NOTE | 2025-07-21 09:06 | OR ---
[facility] [address], [place] [address] Signed DATE OF OPERATION: 07/20/2025 SURGEON: Deborah Wray MD PREOPERATIVE DIAGNOSIS: Duodenal ulcer and complex hiatal hernia (probable paraesophageal hernia) April 19, 2025. POSTOPERATIVE DIAGNOSIS: Complete healing of duodenal ulcer; complex hiatal hernia remains. PROCEDURE: Esophagogastroduodenoscopy with biopsy. ANESTHESIA: Intravenous sedation; fentanyl 100 mcg, Versed 3 mg total. INDICATION: This 85-year-old white woman is a patient of Dr. Whaley in [place]. Last summer on April 19, 2025, she underwent upper endoscopy. She was found to have a duodenal ulcer as well as a complex hiatal hernia, most likely paraesophageal hernia or a type 4 hiatal hernia. She has been treated with PPI medication and Carafate and is asymptomatic. She is here for test of cure upper endoscopy. She understands risk of bleeding, infection, and perforation, wished to proceed. FINDINGS: Upper endoscopy showed a normal esophagus. The stomach showed complex hernia formation consistent with a type 4 hiatal hernia. The duodenum itself was normal. No sign of residual or prior ulceration. CLOtest was negative. DESCRIPTION OF PROCEDURE: The patient was brought to the endoscopy suite and placed in lateral decubitus position, given intravenous sedation to the point of slurred speech and nystagmus with full cardiopulmonary monitoring. A bite block was placed and an Olympus video upper endoscope was passed in the hypopharynx. Vocal cords were relatively small, but though not particularly distorted in anyway. Scope was advanced to the esophagus throughout its length, it was normal. Scope was passed to the stomach which was insufflated with air. Rugal folds were normal. Distortion of the body of the stomach was noted concurrent and consistent with complex hiatal hernia from the past. Retroflexed view confirmed this as well. A fair amount of manipulation was required to ultimately Electronically Signed By: DEBORAH WRAY MD 07/21/25 0906 PATIENT NAME: JUAN DORSEY OPERATIVE REPORT DATE OF : 44 REPORT #: [id number] PHYSICIAN: DEBORAH WRAY MD PCP: NO PRIMARY CARE PHYSICIAN REPORT IS CONFIDENTIAL AND NOT TO BE RELEASED WITHOUT AUTHORIZATION [facility] [address], [place] [address] Signed identify the pylorus allowing for passage into the duodenum. Scope was passed to the third portion of the duodenum and was withdrawn and biopsies taken there for celiac disease rule out. Scope was withdrawn to the bulbar duodenum and second portion showing no sign of residual or persistent ulcer. Scope was withdrawn to the distal stomach which was biopsied for both CHELSIE and pathologic testing. Retroflexed view was undertaken confirming complex hiatal hernia as previously noted. Scope was withdrawn and biopsies taken of distal esophagus was entirely normal without signs of inflammation, stricture or Jett's epithelium. Further withdrawal showed no other abnormalities. Scope was removed. The patient was taken to the recovery room in good condition. CONCLUDING DIAGNOSES: 1. Conclude complete healing of duodenal ulcer. 2. Complex hiatal hernia consistent with type 4 hiatal hernia. PLAN: Continued PPI would be reasonable in her particular case. Consideration for repair of the hernia would be considered as well, though we are mindful of her advanced age. We will see her back in the office in review of her findings and be mindful of need for repair versus advanced age and medical comorbidities which in her case are not extensive actually. MD TG Yi/JUANL /[id number] cc: Dr. Judd Roberts [place] Copies: ~ Electronically Signed By: DEBORAH WRAY MD 07/21/25 0906 PATIENT NAME: JUAN DORSEY OPERATIVE REPORT DATE OF : 44 REPORT #: [id number] PHYSICIAN: DEBORAH WRAY MD PCP: NO PRIMARY CARE PHYSICIAN REPORT IS CONFIDENTIAL AND NOT TO BE RELEASED WITHOUT AUTHORIZATION
--- NOTE | 2025-07-26 17:20 | PATH ---
[facility] [address], [place] [address] Signed SPECIMEN(S): A DUODENAL BIOPSY SPECIMEN(S): B ANTRUM BIOPSY SPECIMEN(S): C LOWER ESOPHAGEAL BIOPSY SPECIMEN SOURCE: A. DUODENAL BIOPSY B. ANTRUM BIOPSY C. LOWER ESOPHAGEAL BIOPSY CLINICAL HISTORY: History of duodenal ulcer FINAL PATHOLOGIC DIAGNOSIS: A. Duodenum, biopsy: - Benign duodenal mucosa, negative for significantly increased intraepithelial lymphocytosis and villous blunting. B. Antrum, biopsy: - Benign antral type gastric mucosa. - Negative for intestinal metaplasia and dysplasia. - Negative for Helicobacter pylori organisms on routine stain. C. Lower esophagus, biopsy: - No tissue present, did not survive processing. DDF MICROSCOPIC EXAMINATION: Histologic sections of all submitted blocks are examined by light microscopy. These findings, together with the gross examination, support the pathologic diagnosis. GROSS DESCRIPTION: A. The specimen, labeled and designated "Avinashtenbach, duodenal biopsy," is received in formalin and consists of four adams soft tissue fragments, ranging from 0.2-0.3 cm. Entirely submitted in (A1). B. The specimen, labeled and designated "Rittenbach, antrum biopsy," is received in formalin and consists of three adams soft tissue fragments, ranging from 0.1-0.4 cm. Entirely submitted in (B1). C. The specimen, labeled and designated "Rittenbach, lower esophageal biopsy," is received in formalin and consists of possible scant fragments of tissue that is not likely to survive processing. The specimen is sent to cytology for cellblock preparation. VB (under the direct supervision of a pathologist) PATIENT NAME: JUAN DORSEY PATHOLOGY DATE OF : 44 REPORT #: [id number] PHYSICIAN: RICARDO MOLINA PCP: NO PRIMARY CARE PHYSICIAN REPORT IS CONFIDENTIAL AND NOT TO BE RELEASED WITHOUT AUTHORIZATION [facility] [address], [place] [address] Signed The Gross Description was prepared using a voice recognition system. The report was reviewed for accuracy; however, sound-alike word errors, addition and/or deletions may occur. If there is any question about this report, please contact Client Services. ADDITIONAL NOTES: Immunohistochemical and/or in situ hybridization studies if performed in this case included appropriate positive controls that reacted as expected. This test was developed and its performance characteristics determined by [facility]. It has not been cleared or approved by the U.S. Food and Drug Administration. The FDA has determined that such clearance or approval is not necessary. This test is used for clinical purposes. It should not be regarded as investigational or for research. [facility] is certified under the Clinical Laboratory Improvement Amendments of 1988 (CLIA) as qualified to perform high complexity clinical laboratory testing. PERFORMING LABORATORY: Technical component was performed by [facility], [address] [place] [id number] (CLIA# [id number]). Professional interpretation was performed by [facility] [address] [place] [id number] Diagnostician: Melecio Amin DO Pathologist Electronically Signed 07/26/2025 Copies: ~ PATIENT NAME: WILLIANJUAN PATHOLOGY DATE OF : 44 REPORT #: [id number] PHYSICIAN: RICARDO PATHOLOGY PCP: NO PRIMARY CARE PHYSICIAN REPORT IS CONFIDENTIAL AND NOT TO BE RELEASED WITHOUT AUTHORIZATION
== END 2025-07-20 16:40 | disposition home or self-care (01) ==
LOC: DS 12:10
PROVIDERS: ATTEND Surgery
PROC: 0DB98ZX Excision of Duodenum, Via Natural or Artificial Opening Endoscopic, Diagnostic (ICD-10-PCS; principal; 2025-07-20 13:00)
PROC: 0DB38ZX Excision of Lower Esophagus, Via Natural or Artificial Opening Endoscopic, Diagnostic (ICD-10-PCS; principal; 2025-07-20 13:00)
PROC: 0DB68ZX Excision of Stomach, Via Natural or Artificial Opening Endoscopic, Diagnostic (ICD-10-PCS; principal; 2025-07-20 13:00)
DX: K44.9 Diaphragmatic hernia without obstruction or gangrene (principal); E03.9 Hypothyroidism, unspecified; Z88.5 Allergy status to narcotic agent; Z79.890 Hormone replacement therapy
CPT/HCPCS: 88305; 99153; G0500; J2250; J3010

== ENCOUNTER 2025-07-25 18:32 | Emergency (ER) | payer MEDICARE ==
[~2025-07-25] VITALS: Ht 165.1 cm; Wt 62.7 kg
--- OUTSIDE RECORDS SUMMARY | ~2025-07-25 | XMS | Continuity of Care Document ---
Demographics + + + | Address | [address] | | | [place] [address] | + + + | Preferred Language | Unknown | + + + | Marital Status | | + + + | Restoration Affiliation | Unknown | + + + | Race | White | + + + | Ethnic Group | Not or | + + + Author + + + | Author | [facility] | + + + | Organization | [facility] | + + + | Address | [address] | | | [place] [address] | + + + | Phone | | + + + Care Team Providers + + + + | Care Event Manager Name | Role | Phone | + [...] + | (no date) | OMEPRAZOLE | [facility] | | | | [facility] | + + + + | (no date) | SIMVASTATIN | [facility] | | | | [facility] | + + + + | 2025-04-30 00:00 | CIPROFLOXACIN HCL | [facility] | | | | [facility] | + + + + | (no date) | MAGNESIUM OXIDE | [facility] | | | | [facility] | + + + + | (no date) | Cholecalciferol (Vitamin | [facility] | | | D3) | [facility] | + + + + | (no date) | NAPROXEN SODIUM | [facility] | | | | [facility] | + + + + | (no date) | LEVOTHYROXINE SODIUM | [facility] | | | | [facility] | + + + + | (no date) | BUPROPION HCL | [facility] | | | | [facility] | + + + + Problems + + + + | date | description | facility | + + + + | 2025-04-28 00:00 | Colitis | [facility] | | | | [facility] | + + + + Procedures + + + + | date | description | facility | + + + + | 2025-07-20 00:00 | Esophagogastroduodenoscopy | [facility] | | | (EGD) with closed biopsy | [facility] | + + + + | 2025-07-20 00:00 | Esophagogastroduodenoscopy | [facility] | | | (EGD) with closed [...]
[~2025-07-25 18:32] MED LIST changes: +FISH OIL 1,2001 EACH PO; -IBLOOD GLUCOSE TEST STRIP 1 EA TEST VI PRN; -LACTATED RINGER'S 1,000 ML IV SCH; -LIDOCAINE HCL 1% 5 ML SDV INJ ONE; -LIDOCAINE HCL 4% 50 ML BTL TOP SCH; +MAGNESIUM250 MG PO; +VITAMIN B COMP1 EAC1 PO; +VITAMIN D350 MC3 PO
[2025-07-25 18:42] LABS: BASOPHILS 0.8 % (0.1-1.2); EOSINOPHILS 2.9 % (0.7-5.8); LYMPHOCYTES 37.4 % (19.3-51.7); MCH 27.9 PG (25.6-32.2); MCHC 33.2 g/dL (32.2-35.5); MCV 84.0 fL (79.4-94.8); MONOCYTES 11.4 % (4.7-12.5); NEUTROPHILS 47.3 % (34.0-71.1); RBC 4.38 M/uL (3.93-5.22)
[2025-07-25] MEDS ORDERED: IBLOOD GLUCOSE TEST STRIP 1 EA TEST XX ONE (18:45)
[2025-07-25 19:00] LABS: ALT (SGPT) 20.0 U/L (14-59); AST (SGOT) 13.0 U/L (15-37); GLOMERULAR FILTRATION RATE,EST 45.0 mL/min (>60); PROTEIN, TOTAL 6.6 g/dL (6.4-8.2); UREA NITROGEN 15.0 mg/dL (7-18)
[2025-07-25] MEDS ORDERED: LACTATED RINGER'S 1,000 ML IV ONE (19:30)
[2025-07-25] MEDS ORDERED: FAMOTIDINE 20 MG/ 2 ML VIAL IV ONE (19:30)
[2025-07-25 20:02] LABS: TSH, 3RD GENERATION 6.198 uIU/mL (0.358-3.740)
[2025-07-25 21:19] LABS: BLOOD/HGB, URINE NEGATIVE (Negative); KETONE, URINE NEGATIVE (Negative); LEUK ESTERASE, URINE NEGATIVE (negative); NITRITE, URINE NEGATIVE (negative)
[2025-07-25 21:55] VITALS: BP 114/90
--- NOTE | 2025-07-27 07:31 | EKG ---
[facility] [address] [facility] [address] [place], [place] [address] Signed Sinus bradycardia with sinus arrhythmia Otherwise normal ECG When compared with ECG of 08-DEC-2022 21:27, No significant change was found Confirmed by Johanny Miranda DO ([id number]) on 07/27/2025 7:31:17 AM Electronically Signed By: JOHANNY MIRANDA DO 07/27/25 0731 PATIENT NAME: JUAN DORSEY Electrocardiogram DATE OF : 44 PHYSICIAN: JOHANNY MIRANDA DO REPORT #: [id number] REPORT IS CONFIDENTIAL AND NOT TO BE RELEASED WITHOUT AUTHORIZATION
== END 2025-07-25 22:11 | disposition home or self-care (01) ==
LOC: ED 18:32
PROVIDERS: Emergency Medicine; Internal Medicine
DX: E86.0 Dehydration (principal); E03.9 Hypothyroidism, unspecified; Z79.51 Long term (current) use of inhaled steroids; Z79.899 Other long term (current) drug therapy; Z88.5 Allergy status to narcotic agent
CPT/HCPCS: 36415; 71045; 80053; 81003; 83735; 83880; 84443; 84484; 85025; 93005; 93010; 96361; 96374; 96375; 99285-25; J2405; J7121

== ENCOUNTER 2025-07-26 12:32 | Inpatient (IN) | payer MEDICARE ==
[~2025-07-26] VITALS: Ht 165.1 cm; Wt 63.5 kg
--- OUTSIDE RECORDS SUMMARY | ~2025-07-26 | XMS | Continuity of Care Document ---
Demographics + + + | Address | [address] | | | [place] [address] | + + + | Preferred Language | Unknown | + + + | Marital Status | | + + + | Taoist Affiliation | Unknown | + + + | Race | White | + + + | Ethnic Group | Not or | + + + Author + + + | Author | [facility] | + + + | Organization | [facility] | + + + | Address | [address] | | | [place] [address] | + + + | Phone | | + + + Care Team Providers + + + + | Care Sprinkler Fitter Apprentice Name | Role | Phone | + + + + Unavailable | Unavailable | + + + + Unavailable | Unavailable | + + + + Allergies and Intolerances + + + + + + | date | description | facility | reaction | severity | + + + + + + | 2025-07-20 | Hydromorphone | [facility] - | (no reaction) | Moderate | | 00:00 | | [facility] | | | + + + + + + | 2025-07-20 | Fentanyl | [facility] - | (no reaction) | Moderate | | 00:00 | | [facility] | | | + + + + + + | 2025-07-20 | Morphine | [facility] - | (no reaction) | Moderate | | 00:00 | | [facility] | | | + + + + + + | 2025-07-20 | Hydromorphone | [facility] - | (no reaction) | Moderate | | 00:00 | | [facility] | | | + + + + + + | 2025-07-20 | Fentanyl | [facility] - | (no reaction) | Moderate | | 00:00 | | [facility] | | | + + + + + + | 2025-07-20 | Morphine | [facility] - | (no reaction) | Moderate | | 00:00 | | [facility] | | | + + + + + + | 2025-07-20 | Morphine | [facility] - | (no reaction) | Moderate | | 00:00 | | [facility] | | | + + + + + + | 2025-07-20 | Hydromorphone | [facility] - | (no reaction) | Moderate | | 00:00 | | [facility] | | | + + + + + + | 2025-07-20 | Fentanyl | [facility] - | (no reaction) | Moderate | | 00:00 | | [facility] | | | + + + + + + Encounters No information. Functional Status No information. Immunizations No information. Medications + + + + | date | description | facility | + + + + | (no date) | BUDESONIDE/FORMOTEROL | [facility] | | | FUMARATE | [facility] | + + + + | (no date) | OMEPRAZOLE | [facility] | | | | [facility] | + + + + | (no date) | SIMVASTATIN | [facility] | | | | [facility] | + + + + | 2025-04-30 00:00 | CIPROFLOXACIN HCL | [facility] | | | | [facility] | + + + + | (no date) | MAGNESIUM OXIDE | [facility] | | | | [facility] | + + + + | (no date) | Cholecalciferol (Vitamin | [facility] | | | D3) | [facility] | + + + + | (no date) | NAPROXEN SODIUM | [facility] | | | | [facility] | + + + + | (no date) | LEVOTHYROXINE SODIUM | [facility] | | | | [facility] | + + + + | (no date) | BUPROPION HCL | [facility] | | | | [facility] | + + + + Problems + + + + | date | description | facility | + + + + | 2025-04-28 00:00 | Colitis | [facility] | | | | [facility] | + + + + Procedures + + + + | date | description | facility | + + + + | 2025-07-20 00:00 | Esophagogastroduodenoscopy | [facility] | | | (EGD) with closed biopsy | [facility] | + + + + | 2025-07-20 00:00 | Esophagogastroduodenoscopy | [facility] | | | (EGD) with closed biopsy | [facility] | + + + + Results/Labs No information. Social History + + + + | date | description | facility | + + + + | (no date) | Unknown if ever smoked | [facility] | | | | [facility] | + + + + Vital Signs + + + +---------+ | date | measurement | value | units | + + + +---------+ | 2025-07-19 00:00 | BMI | 23.0 | kg/m2 | + + + +---------+ | 2025-07-19 00:00 | height_metric | 165.1 | cm | + + + +---------+ | 2025-07-19 00:00 | height_standard | 65 | in | + + + +---------+ | 2025-07-19 00:00 | weight_metric | 62.72 | kg | + + + +---------+ | 2025-07-19 00:00 | weight_standard | 138.275 | lb | + + + +---------+ | 2025-07-20 00:00 | BP_diastolic | 82 | mmHg | + + + +---------+ | 2025-07-20 00:00 | BP_systolic | 143 | mmHg | + + + +---------+ | 2025-07-20 00:00 | heart_rate | 65 | /min | + + + +---------+ | 2025-07-20 00:00 | o2_saturation | 100 | % | + + + +---------+ | 2025-07-20 00:00 | respiration_rate | 18 | /min | + + + +---------+ | 2025-07-20 00:00 | | 97.9 | F | | | temperature_standar | | | | | d | | | + + + +---------+"
--- OUTSIDE RECORDS SUMMARY | ~2025-07-26 | XMS | Continuity of Care Document ---
Demographics + + + | Address | [address] | | | [place] [address] | + + + | Preferred Language | Unknown | + + + | Marital Status | | + + + | Spiritism Affiliation | Unknown | + + + | Race | White | + + + | Ethnic Group | Not or | + + + Author + + + | Author | [facility] | + + + | Organization | [facility] | + + + | Address | [address] | | | [place] [address] | + + + | Phone | | + + + Care Team Providers + + + + | Care Air Conditioning Supervisor Name | Role | Phone | + [...] + | (no date) | OMEPRAZOLE | [facility] | | | | [facility] | + + + + | (no date) | SIMVASTATIN | [facility] | | | | [facility] | + + + + | 2025-04-30 00:00 | CIPROFLOXACIN HCL | [facility] | | | | [facility] | + + + + | (no date) | MAGNESIUM OXIDE | [facility] | | | | [facility] | + + + + | (no date) | Cholecalciferol (Vitamin | [facility] | | | D3) | [facility] | + + + + | (no date) | NAPROXEN SODIUM | [facility] | | | | [facility] | + + + + | (no date) | LEVOTHYROXINE SODIUM | [facility] | | | | [facility] | + + + + | (no date) | BUPROPION HCL | [facility] | | | | [facility] | + + + + Problems + + + + | date | description | facility | + + + + | 2025-04-28 00:00 | Colitis | [facility] | | | | [facility] | + + + + Procedures + + + + | date | description | facility | + + + + | 2025-07-20 00:00 | Esophagogastroduodenoscopy | [facility] | | | (EGD) with closed biopsy | [facility] | + + + + | 2025-07-20 00:00 | Esophagogastroduodenoscopy | [facility] | | | (EGD) with closed biopsy | [facility] | + + + + Results/Labs No information. Social History + + + + | date | description | facility | + + + + | (no date) | Unknown if ever smoked | [facility] | | | | [facility] | + + + + Vital Signs [...]
--- OUTSIDE RECORDS SUMMARY | 2025-07-26 12:39 | XMS ---
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 Nhi has no Care Guidelines for this patient. Maryann VISIT COUNT (12 MO.) 4 [facility] [facility] TOTAL 4 NOTE: Visits indicate total known visits. ED/C VISIT TRACKING (12 MO.) 07/26/2025 12:33 [facility] [place] TYPE: Emergency COMPLAINT: - RT ARM NUMBNESS 07/25/2025 18:32 [facility] [place] TYPE: Emergency COMPLAINT: - DIZZINESS 04/28/2025 19:18 [facility] [place] TYPE: Emergency COMPLAINT: - ABDOM PAIN 04/18/2025 19:56 [facility] [place] TYPE: Emergency COMPLAINT: - ABDOMINAL PAIN INPATIENT VISIT TRACKING (12 MO.) 04/28/2025 19:19 [facility] [place] TYPE: Observation COMPLAINT: - COLITIS DIAGNOSES: - Acquired absence of both cervix and uterus - Allergy status to narcotic agent - Chronic kidney disease, unspecified - Chronic obstructive pulmonary disease, unspecified - Constipation, unspecified - Diaphragmatic hernia without obstruction or gangrene - Diverticulosis of large intestine without perforation or abscess without bleeding - Do not resuscitate - Hormone replacement therapy - Hyperlipidemia, unspecified - Hypothyroidism, unspecified - Major depressive disorder, single episode, unspecified - Noninfective gastroenteritis and colitis, unspecified - Other constipation - Other long term care pharmacist (current) drug therapy - Peptic ulcer, site unspecified, unspecified as acute or chronic, without hemorrhage or perforation 04/19/2025 09:15 [facility] [place] TYPE: Medical [...] Hypothyroidism, unspecified - Hypothyroidism, unspecified - Other long term care pharmacist (current) drug therapy - Other long term care pharmacist (current) drug therapy - Parkinson's disease without dyskinesia, without mention of fluctuations - Parkinson's disease without dyskinesia, without mention of fluctuations - Personal history of malignant neoplasm of breast - Personal history of malignant neoplasm of breast - Unspecified abdominal pain [email or web address]
[2025-07-26] MEDS ORDERED: SODIUM CHLORIDE 0.9% 1,000 ML IV PRN (13:00)
[2025-07-26 13:06] LABS: BASOPHILS 0.9 % (0.1-1.2); EOSINOPHILS 0.9 % (0.7-5.8); LYMPHOCYTES 25.9 % (19.3-51.7); MCH 28.1 PG (25.6-32.2); MCHC 32.7 g/dL (32.2-35.5); MCV 85.8 fL (79.4-94.8); MONOCYTES 10.1 % (4.7-12.5); NEUTROPHILS 62.0 % (34.0-71.1); RBC 4.31 M/uL (3.93-5.22)
[2025-07-26 13:16] LABS: INR 0.97 (0.80-1.30); PROTIME 12.2 Sec (11.2-14.2)
[2025-07-26 13:24] LABS: ALT (SGPT) 17.0 U/L (14-59); AST (SGOT) 11.0 U/L (15-37); GLOMERULAR FILTRATION RATE,EST 43.0 mL/min (>60); PROTEIN, TOTAL 6.6 g/dL (6.4-8.2); UREA NITROGEN 13.0 mg/dL (7-18)
[2025-07-26 14:03] LABS: BLOOD/HGB, URINE NEGATIVE (Negative); KETONE, URINE NEGATIVE (Negative); LEUK ESTERASE, URINE NEGATIVE (negative); NITRITE, URINE NEGATIVE (negative)
[2025-07-26] MEDS ORDERED: PROCHLORPERAZINE EDISYLATE 10 MG/2 ML VIAL IV PRN (16:15)
[2025-07-26] MEDS ORDERED: LACTATED RINGER'S 1,000 ML IV SCH (16:15)
[2025-07-26] MEDS ORDERED: ACETAMINOPHEN 325 MG TAB PO PRN (16:15)
[2025-07-26 16:26] LABS: CHOLESTEROL/HDL RATIO 1.9; LDL CHOLESTEROL 77.0 mg/dL (< 129); NON-HDL CHOLESTEROL 87.0; VLDL CHOLESTEROL 9.0
[2025-07-26 17:19] VITALS: BP 164/91
[2025-07-26 17:57] VITALS: BP 164/91
--- NOTE | 2025-07-26 18:01 | NUR ---
PT REC'D FROM ED VIA STRETCHER TO ROOM 121. PT WITHOUT C/O AT THIS TIME, ALTHOUGH NOTED TO HAVE DIZZINESS AND WEAKNESS WITH STANDING. PT REPORTS CAME TO THE ED LAST NIGHT FOR VERTIGO AND WAS DISCHARGE. PT REPORTS NO NUMBNESS OR TINGLING TO EXTREMITIES AND DENIES PAIN AND NUMBNESS TO R SIDE OF FACE. PT PLEASANT AND COOPERATIVE WITH ADMISSION QUESTIONS AND ASSESSMENT. PT PASSED VARUN SWALLOW EXAM AND PROVIDED REGULAR DIET. IV LR @ 100ML/HR INFUSING TO L AC, SCD'S AND TELEMETRY APPLIED. PT ORIENTED TO ROOM AND CALL ARMENDARIZ, BED IN LOW POSITION AND LOCKED. PT INSTRUCTED TO CALL FOR ASSISTANCE OOB UNTIL VERTIGO HAS SUBSIDED. VERBALIZED UNDERSTANING. PT TOLERATED PM MEAL WITHOUT DIFFICULTY. VSS NO ACUTE DISTRESS NOTED.
--- NOTE | 2025-07-26 19:23 | NUR ---
GOT REPORT FROM DAYSHIFT NURSE.
--- NOTE | 2025-07-26 19:29 | NUR ---
PATIENT IN ROOM WITH FAMILY. ALSO IN THE ROOM TALKING TO PATIENT. PATIENT ON ROOM AIR, A&O. PATIENT WANTS TO GO HOME.
[2025-07-26] MEDS ORDERED: CLOPIDOGREL BISULFATE 75 MG TAB PO ONE (20:15)
[2025-07-26 20:37] VITALS: BP 162/91
[2025-07-26] MEDS ORDERED: AMLODIPINE BESYLATE 5 MG TAB PO SCH (21:00)
[2025-07-26] MEDS ORDERED: MELATONIN 3 MG TAB PO PRN (21:00)
[2025-07-26] MEDS ORDERED: ATORVASTATIN 40 MG TAB PO SCH (21:00)
--- NOTE | 2025-07-26 21:34 | NUR ---
PATIENT HAS REFUSED MEDICATIONS. PATIENT STATES HER BLOOD PRESSURE IS GREAT AT HOME ITS ACTUALLY LOW PER PATIENT AND SHE HAS ALWAYS HAD LOW CHOLESTEROL. PATIENT DENIES TAKING MEDICATION. SHE ADVISED THIS NURSE THAT SHE WAS NOT SURE HOW THE DOCTOR COULD PLACE HER ON MEDICATIONS IF HE IS NOT EVEN SURE WHATS GOING ON.
[2025-07-26 22:04] VITALS: BP 162/91
--- NOTE | 2025-07-26 22:17 | NUR ---
CALL LIGHT ANSWERED. PT NEEDED TO USE BATHROOM. POSTAL SUPERVISOR SBA TO BATHROOM. PT VOIDED AND ASSISTED BACK TO BED. PT REFUSED SCDS AND STATED NO FURTHER NEEDS AT THIS TIME. CALL LIGHT WITHIN REACH.
[2025-07-27] VITALS (12 sets, daily range): BP systolic 127–174; BP diastolic 69–90
--- NOTE | 2025-07-27 01:01 | NUR ---
RECEIVED REPORT FROM THERESE JACKSON. PT LAYING IN BED, EYES CLOSED, UNLABORED BREATHING. CALL LIGHT WITHIN REACH.
--- NOTE | 2025-07-27 01:28 | NUR ---
PTS IV PUMP ALARMING, NEW BAG OF FLUIDS HUNG. NO OTHER NEEDS AT THIS TIME, CALL LIGHT WITHIN REACH.
--- NOTE | 2025-07-27 03:38 | NUR ---
PTS IV ALARMING, ASSESSED AND REPOSITIONED. NO OTHER NEEDS AT THIS TIME, CALL LIGHT WITHIN REACH.
[2025-07-27 05:29] LABS: BASOPHILS 0.9 % (0.1-1.2); EOSINOPHILS 2.2 % (0.7-5.8); LYMPHOCYTES 34.2 % (19.3-51.7); MCH 27.7 PG (25.6-32.2); MCHC 31.9 g/dL (32.2-35.5); MCV 86.9 fL (79.4-94.8); MONOCYTES 10.8 % (4.7-12.5); NEUTROPHILS 51.9 % (34.0-71.1); RBC 3.82 M/uL (3.93-5.22)
[2025-07-27 05:47] LABS: ALT (SGPT) 16.0 U/L (14-59); AST (SGOT) 10.0 U/L (15-37); GLOMERULAR FILTRATION RATE,EST 45.0 mL/min (>60); PROTEIN, TOTAL 5.6 g/dL (6.4-8.2); UREA NITROGEN 12.0 mg/dL (7-18)
--- NOTE | 2025-07-27 05:50 | NUR ---
PT UP TO BR W/ SBA. VOIDS WNL. PT CURRENTLY SITTING EOB. DENIES ANY OTHER NEEDS AT THIS TIME.
[2025-07-27] MEDS ORDERED: LEVOTHYROXINE SODIUM 100 MCG TAB PO SCH (07:00)
--- NOTE | 2025-07-27 07:02 | NUR ---
RECIEVED REPORT FROM THERESE JEREZ. PT IS RESTING IN BED WITH EYES CLOSED. RR EVEN AND UNLABORED. CALL LIGHT IS WITHIN REACH.
--- NOTE | 2025-07-27 07:23 | EKG ---
[facility] [address] [facility] [address] [facility] [place] [address] Signed Normal sinus rhythm with sinus arrhythmia Normal ECG When compared with ECG of 25-JUL-2025 18:39, (Unconfirmed) No significant change was found Confirmed by Bernardo Miranda DO ([id number]) on 07/27/2025 7:23:33 AM Electronically Signed By: BERNARDO MIRANDA DO 07/27/25 0723 PATIENT NAME: KATHYCIRILOJUAN BAI Electrocardiogram DATE OF : 44 PHYSICIAN: BERNARDO MIRANDA DO REPORT #: [id number] REPORT IS CONFIDENTIAL AND NOT TO BE RELEASED WITHOUT AUTHORIZATION
[2025-07-27] MEDS ORDERED: ASPIRIN 81 MG CHEW PO SCH (08:00)
--- NOTE | 2025-07-27 08:13 | NUR ---
PATIENT IN BED AT THIS TIME. WINERY WORKER ASSISTED PATIENT BACK TO BED FROM BATHROOM. CALL LIGHT WITHIN REACH, NO FURTHER NEEDS.
[2025-07-27] MEDS ORDERED: LOSARTAN POTASSIUM 25 MG TAB PO SCH (09:00)
[2025-07-27] MEDS ORDERED: CLOPIDOGREL BISULFATE 75 MG TAB PO SCH (09:00)
[2025-07-27] MEDS ORDERED: PANTOPRAZOLE SODIUM 40 MG TABEC PO SCH (09:00)
[2025-07-27] MEDS ORDERED: LOSARTAN POTASSIUM 50 MG TAB PO SCH (09:00)
[2025-07-27] MEDS ORDERED: buPROPion HCL XL 150 MG TAB.XL.24H PO SCH (09:00)
--- NOTE | 2025-07-27 09:45 | NUR ---
IN ROOM WITH PHYSICAL THERAPIST MESERET AT THIS TIME.
[2025-07-27] MEDS ORDERED: AMLODIPINE BESYLATE 10 MG TAB PO SCH (10:00)
[2025-07-27] MEDS ORDERED: LABETALOL HCL 20 MG/4 ML VIAL IV PRN (10:00)
--- NOTE | 2025-07-27 10:08 | NUR ---
NEW IV IN LEFT FOREARM FLUSHED; IV BOLUS CONNECTED AND RESTARTED.
--- NOTE | 2025-07-27 11:04 | NUR ---
PATIENT IS LYING IN BED WITH HOB ELEVATED WITH EYES OPEN AND RESPIRATIONS ARE EVEN AND UNLABORED. PATIENT WITH A VISITOR SITTING IN THE RECLINER AT BEDSIDE. TV IS ON. CALL LIGHT AND PERSONAL BELONGINGS ARE WITHIN REACH.
[2025-07-27] MEDS ORDERED: PHARMACY RENAL DOSE ADJUSTMENT 1 DOSE MISC PO SCH (12:00)
--- NOTE | 2025-07-27 12:15 | NUR ---
KENISHA, THE PHARMACIST IS IN THE ROOM AT THIS TIME.
[2025-07-27] MEDS ORDERED: OMEPRAZOLE40 MG PO (13:00)
--- NOTE | 2025-07-27 13:01 | NUR ---
MED REC COMPLETE
--- NOTE | 2025-07-27 13:38 | NUR ---
PHYSICAL THERAPY IS IN WITH PT AT THIS TIME.
--- NOTE | 2025-07-27 13:53 | NUR ---
PATIENT IN BED AT THIS TIME. CN ACHARTED VITALS AND I&O'S. CALL LIGHT WITHIN REACH, NO FURTHER NEEDS.
--- NOTE | 2025-07-27 15:48 | NUR ---
PT RESTING IN BED WITH EYES OPEN, TALKING WITH PHILIPPE RUCKER IN ROOM. GRANDDAUGHTER IS AT BEDSIDE. CALL LIGHT WITHIN REACH.
--- NOTE | 2025-07-27 16:38 | NUR ---
PT RESTING IN BED WITH EYES OPEN, VISITING WITH FAMILY AT BEDSIDE. CALL LIGHT AND PERSONAL BELONGINGS ARE WITHIN REACH.
--- NOTE | 2025-07-27 17:43 | NUR ---
PATIENT IN BED AT THIS TIME. WALL TO WALL CARPET INSTALLER CHARTED I&O'S, THERESE ROSENTHAL CHARTED VITALS. CALL LIGHT WITHIN REACH, NO FURTHER NEEDS.
--- NOTE | 2025-07-27 18:22 | NUR ---
PT RESTING IN BED, TALKING ON PHONE. HOB IS ELEVATED. CALL LIGHT AND PERSONAL BELONGINGS ARE WITHIN REACH.
[2025-07-27] MEDS ORDERED: MAGNESIUM HYDROXIDE/AL HYDROX 30 ML CUP PO PRN (19:30)
--- NOTE | 2025-07-27 19:30 | NUR ---
RECEIVED REPORT FROM THERESE SPENCE. PT SITTING UP IN BED REQUESTING SOMETHING FOR HEARTBURN. NIO PLACED FOR MALOOX, GIVEN. NO OTHER NEEDS AT THIS TIME, CALL THANG WITHIN REACH.
--- NOTE | 2025-07-27 21:40 | NUR ---
PT LAYING IN BED FILLING OUT CROSSWORD PUZZLES. NO OTHER NEEDS AT THIS TIME, CALL LIGHT WITHIN REACH.
--- NOTE | 2025-07-27 23:20 | NUR ---
CALL LIGHT ANSWERED, pt UP SBA TO BATHROOM AND VOIDED UNMEASURED AMOUNT ALONG WITH 100MLS. pt BACK IN BED, CALLS APPROP. CLEAN BRIEFS IN PLACE, pt DID OWN [facility]ASIA CARE. NO ADDITIONAL NEEDS OR CONCERNS. CALL LIGHT IN REACH.
--- NOTE | 2025-07-27 23:43 | NUR ---
PT LAYING IN BED WATCHING TV, REPORTS NO NEEDS AT THIS TIME. CALL LIGHT WITHIN REACH.
[2025-07-28] VITALS (11 sets, daily range): BP systolic 118–154; BP diastolic 65–76
--- NOTE | 2025-07-28 00:52 | NUR ---
PT ASSISTED TO THE BATHROOM WITH CANE AND LTM. PT BACK TO BED, NO OTHER NEEDS REPORTED, LIGHTS OFF, CALL LIGHT WITHIN REACH.
--- NOTE | 2025-07-28 01:46 | NUR ---
NEW LEADS PLACED ON PT D/T TELE READING INCORRECTLY. VS TAKEN, NO OTHER NEEDS AT THIS TIME, CALL LIGHT WITHIN REACH.
--- NOTE | 2025-07-28 03:42 | NUR ---
PT LAYING ON L SIDE WITH EYES CLOSED, UNLABORED BREATHING. CALL LIGHT WITHIN REACH, IV FLUIDS INFUSING PER ORDER.
--- NOTE | 2025-07-28 04:32 | NUR ---
CALL LIGHT ANSWERED. PT NEEDED TO USE BATHROOM. BIOMEDICAL EQUIPMENT TECH SBA TO BATHROOM. PT VOIDED AND ASSISTED BACK TO BED. VITALS AND I&0 OBTAINED. PT STATES NO FURTHER NEEDS AT THIS TIME. CALL LIGHT WITHIN REACH.
[2025-07-28 05:22] LABS: BASOPHILS 0.7 % (0.1-1.2); EOSINOPHILS 2.9 % (0.7-5.8); LYMPHOCYTES 30.9 % (19.3-51.7); MCH 28.2 PG (25.6-32.2); MCHC 32.9 g/dL (32.2-35.5); MCV 85.6 fL (79.4-94.8); MONOCYTES 11.3 % (4.7-12.5); NEUTROPHILS 54.0 % (34.0-71.1); RBC 3.76 M/uL (3.93-5.22)
[2025-07-28 05:40] LABS: AST (SGOT) 13.0 U/L (15-37); GLOMERULAR FILTRATION RATE,EST 54.0 mL/min (>60); PROTEIN, TOTAL 5.7 g/dL (6.4-8.2); UREA NITROGEN 12.0 mg/dL (7-18)
[2025-07-28 05:52] LABS: ALT (SGPT) 17.0 U/L (14-59)
--- NOTE | 2025-07-28 06:20 | NUR ---
PTS ORDERED MED GIVEN, PT REPORTS NO NEEDS AT THIS TIME. ORAL CARE ITEMS SET UP NEXT TO SINK PER PT REQUEST. NO OTHER NEEDS AT THIS TIME, CALL LIGHT WITHIN REACH.
--- NOTE | 2025-07-28 06:47 | NUR ---
CALL LIGHT ANSWERED. PT NEEDED TO USE BATHROOM. UPON SITTING UP IN BED PT COMPLAINED OF BEING DIZZY. ANTHROPOLOGY FACULTY MEMBER 1PA TO BSC. PT VOIDED AND ASSISTED BACK TO BED. PT STATES NO FURTHER NEEDS AT THIS TIME. CALL LIGHT WITHIN REACH. RN NOTIFIED ABOUT DIZZYNESS AND IV PUMP ALARM .
--- NOTE | 2025-07-28 07:08 | NUR ---
RECIEVED REPORT FROM THERESE JEREZ. PT IS RESTING IN BED WITH EYES CLOSED. RR EVEN AND UNLABORED. CALL LIGHT IS WITHIN REACH.
--- NOTE | 2025-07-28 07:19 | NUR ---
UR CLINICAL REVIEW: 2MN RU, MEETS INPT FOR TIA ECHO NEEDED, CARDIAC MONITORING, SUDDEN NEURO SYMPTOMS WITH RIGHT SIDED PAIN, WEAKNESS, DIZZINESS, MANAGE MEDICATIONS, IV FLUIDS [employer] INPT 07/26/2025 @ 1610 ORDER MATCHES REG AUTH PENDING, WILL SEND CLINICALS FOR REVIEW. PLAN TO DC TO HOME WHEN MEDICALLY READY.
[2025-07-28] MEDS ORDERED: MIDODRINE HCL 5 MG TAB PO SCH (09:00)
--- NOTE | 2025-07-28 09:46 | NUR ---
INTO SEE PATIENT. PERSONAL HEALTH INFORMATION REVIEWED. PATIENT LIVES AT HOME WITH . THEY HAVE A SPLIT LEVEL HOME. JUST INSTALLED NEW HAND RAILS FOR HER HOUSE SO SHE CAN BUSINESS INSIGHT AND ANALYTICS MANAGER THEM BETTER. USES A CANE WHEN SHE IS OUTSIDE THE HOME. DRIVES. DENIES ANY DIFFCULTY PAYING UTLITIES OR OBTAINGING FOOD. PATIENT WILL GO HOME WITH FAMILY WHEN MEDICALLY CLEARED FOR D/C. PT ORDER FAXED TO OUTPATIENT THERAPY OFFICE. NO FUTHER CM NEEDS AT THIS TIME.
--- NOTE | 2025-07-28 09:49 | NUR ---
IMM LETTER COMPLETED.
--- NOTE | 2025-07-28 09:58 | NUR ---
ROUNDING ON THE PATIENT AT THIS TIME.
--- NOTE | 2025-07-28 10:10 | NUR ---
PATIENT IS WORKING WITH PHYSICAL THERAPY AT THIS TIME. PATIENT WITH TWO VISITORS IN THE ROOM AT THIS TIME.
--- NOTE | 2025-07-28 11:31 | NUR ---
PHILIPPE VEGA HELPED TO RECORD PT VS AND I&O'S. PT REQUIRED ASSISTANCE AMBULATING TO THE BATHROOM AND PHILIPPE VEGA ASSISTED HER. PHILIPPE VEGA HELPED GET HER ONTO THE TOILET AND PROVIDED PT WITH AM AND ORAL CARE. PHILIPPE VEGA ALSO UPDATED PT WHITEBOARD AND CHANGED PT LINENS WHILE PT WAS WASHING HER FACE. PT WAS LEFT ON BED WITH CALL LIGHT IN REACH, NO FURTHER NEEDS.
--- NOTE | 2025-07-28 11:32 | NUR ---
Notified by PT Dejah that, for 24 hours, this pt needs to not turn her head rapidly from side to side. She is able to turn her head, but needs to be intentional about turning it slowly. She also notified Primary RN. Abdominal binder placed on pt per verbal order received from Dr. Cotton in the morning meeting.
--- NOTE | 2025-07-28 11:37 | NUR ---
PT WORKING WITH OCCUPATIONAL THERAPY AT THIS TIME.
--- NOTE | 2025-07-28 12:08 | NUR ---
PT SITTING ON EDGE OF BED VISITING WITH FAMILY. IV FLUSHED AND FLUIDS RECONNECTED. PT DENIES ANY NEEDS. LUNCH TRAY AT BEDSIDE. CALL LIGHT AND PERSONAL BELONGINGS ARE WITHIN REACH.
--- NOTE | 2025-07-28 13:49 | NUR ---
PT RESTING IN BED WITH EYES CLOSED. RR EVEN AND UNLABORED. SLEEPING IN CHAIR AT BEDSIDE. CALL LIGHT AND PERSONAL BELONGINGS ARE WITHIN REACH.
[2025-07-28] MEDS ORDERED: MECLIZINE HCL 12.5 MG TAB PO PRN (15:30)
--- NOTE | 2025-07-28 16:51 | NUR ---
PT VISITING WITH FAMILY AT BEDSIDE. PT DENIES ANY NEEDS. HOB IS ELEVATED. CALL LIGHT AND PERSONAL BELONGINGS ARE WITHIN REACH.
[2025-07-28] MEDS ORDERED: PANTOPRAZOLE SODIUM 40 MG TABEC PO SCH (17:00)
--- NOTE | 2025-07-28 21:05 | NUR ---
Awake, reading a book, no c/o pain. SL RW intact, lungs clear slighty dim at bases, abd soft, corbin, LBM today. Tele#[address], SR, no c/o CP or dizziness
--- NOTE | 2025-07-28 23:57 | NUR ---
RESTING, EYES CLOSED, NO S/SX DISTRESS, TELE#[address] SR- HR 64 SCDS OFF HER REQUEST
[2025-07-29] VITALS (7 sets, daily range): BP systolic 99–148; BP diastolic 57–74
--- NOTE | 2025-07-29 02:14 | NUR ---
PT RESTING, EYES CLOSED, NO S/SX DISTRESS, ON ROOM AIR, LUNGS CLEAR ZAFAR AT BASES, NO COUGH AT THIST MIKEL. 1PA/CANE WHEN UP, ALARMS
--- NOTE | 2025-07-29 04:13 | NUR ---
Used call light, up to BRP, voided QS clear yellow urine. 1PA/cane light leaning towards left noted, "Paul very sleepy" stated, does own helga care. Back to bed, tolerated well, no c/o lightheadness or dizziness. Alarms on
[2025-07-29 05:11] LABS: BASOPHILS 0.9 % (0.1-1.2); EOSINOPHILS 3.7 % (0.7-5.8); LYMPHOCYTES 32.5 % (19.3-51.7); MCH 28.2 PG (25.6-32.2); MCHC 32.7 g/dL (32.2-35.5); MCV 86.4 fL (79.4-94.8); MONOCYTES 14.0 % (4.7-12.5); NEUTROPHILS 48.7 % (34.0-71.1); RBC 3.97 M/uL (3.93-5.22)
[2025-07-29 05:35] LABS: GLOMERULAR FILTRATION RATE,EST 51.0 mL/min (>60); UREA NITROGEN 15.0 mg/dL (7-18)
--- NOTE | 2025-07-29 06:07 | NUR ---
RESTINGG, AWAKENS EASILY, NO S/SX DISTRESS OR C/O LIGTHEADNESS. COOPERATIVE WITH VITALS. 1PA/CANE WHEN UP TO BRP EARLIER
--- NOTE | 2025-07-29 06:55 | NUR ---
PATIENT IS LYING IN BED ON HER LEFT SIDE WITH EYES CLOSED AND RESPIRATIONS ARE EVEN AND UNLABORED. CALL LIGHT AND PERSONAL BELONGINGS ARE WITHIN REACH.
[2025-07-29] MEDS ORDERED: LEVOTHYROXINE SODIUM 125 MCG TAB PO SCH (07:00)
--- NOTE | 2025-07-29 07:42 | NUR ---
PATIENT IS LYING IN BED ON HER LEFT SIDE WITH EYES CLOSED AND RESPIRATIONS ARE EVEN AND UNLABORED. LIGHTS IN THE ROOM ARE OFF. CALL LIGHT AND PERSONAL BELONGINGS ARE WITHIN REACH.
--- NOTE | 2025-07-29 09:03 | NUR ---
PT RANG CALL LIGHT AND REQUESTED ASSISTANCE AMBULATING TO BATHROOM. PHILIPPE VEGA ASSISTED HER TO THE RESTROOM AND CHANGED PT BED LINENS WHILE PATIENT USED THE RESTROOM. PHILIPPE VEGA PROVIDED AM AND ORAL CARE FOR PATIENT ALONG WITH UPDATED HER WHITEBOARD STATUS. PATIENT WAS ABLE TO GET BACK IN BED SAFELY, CALL LIGHT WITHIN REACH, NO FURTHER NEEDS. PHILIPPE VEGA CHANGED PATIENT SOCKS AND PUT ON PATIENTS LEG SLEEVES.
--- NOTE | 2025-07-29 09:12 | NUR ---
BREAKFAST TRAY REMOVED FROM THE PATIENT ROOM PER PATIENT REQUEST. PATIENT AND ANOTHER VISITOR ARE IN THE ROOM AT THIS TIME. PATIENT STATED NO NEEDS AT THIS TIME. CALL LIGHT AND PERSONAL BELONGINGS ARE WITHIN REACH.
--- NOTE | 2025-07-29 10:13 | NUR ---
PATIENT IS LYING IN BED WITH HOB ELEVATED. PATIENT WITH EYES OPEN AND RESPIRATIONS ARE EVEN AND UNLABORED. PATIENT WITH TWO VISITORS IN THE ROOM AT THIS TIME. PATIENT STATED NO FURTHER NEEDS AT THIS TIME. CALL LIGHT AND PERSONAL BELONGINGS ARE WITHIN REACH.
--- NOTE | 2025-07-29 10:41 | NUR ---
PHILIPPE VEGA MEASURED PT VS AND I&O. PATIENT STATED NO FURTHER NEEDS AT THIS TIME, CALL LIGHT WITHIN REACH.
--- NOTE | 2025-07-29 11:06 | NUR ---
PATIENT IS LYING IN BED WITH HOB ELEVATED. PATIENT WITH EYES OPEN AND RESPIRATIONS ARE EVEN AND UNLABORED. TV IS ON. PATIENT WITH TWO VISITORS SITTING AT BEDSIDE. CALL LIGHT AND PERSONAL BELONGINGS ARE WITHIN REACH.
[2025-07-29] MEDS ORDERED: LIPITOR40 MG PO (11:30)
[2025-07-29] MEDS ORDERED: ASPIRIN81 MG PO (11:30)
[2025-07-29] MEDS ORDERED: CLOPIDOGREL75 MG PO (11:30)
[2025-07-29] MEDS ORDERED: LEVOTHYROXINE125 MCG PO (11:31)
--- NOTE | 2025-07-29 12:55 | NUR ---
PT DISCHARGED HOME WITH SON VIA W/C. DC INSTRUCTIONS PROVIDED BY PRIMARY NURSE. ALL PERSONAL BELONGINGS SENT WITH PATIENT.
== END 2025-07-29 12:55 | disposition home or self-care (01) | DRG 69 ==
LOC: ED 12:32 → MS 16:21
PROVIDERS: Emergency Medicine; ADMIT Student in an Organized Health Care Education/Training Program; ATTEND Internal Medicine
DX: G45.9 Transient cerebral ischemic attack, unspecified (principal); H81.10 Benign paroxysmal vertigo, unspecified ear; N18.9 Chronic kidney disease, unspecified; G20.A1 Parkinson's disease without dyskinesia, without mention of fluctuations; I67.89 Other cerebrovascular disease; I95.1 Orthostatic hypotension; J45.909 Unspecified asthma, uncomplicated; E78.5 Hyperlipidemia, unspecified; F32.9 Major depressive disorder, single episode, unspecified; Z66 Do not resuscitate; D69.6 Thrombocytopenia, unspecified; E03.9 Hypothyroidism, unspecified; Z88.5 Allergy status to narcotic agent; Z85.3 Personal history of malignant neoplasm of breast; Z79.890 Hormone replacement therapy; Z79.51 Long term (current) use of inhaled steroids
CPT/HCPCS: 36415; 70450; 70496; 70498; 70551; 71045; 80048; 80053; 80061; 81003; 83036; 83735; 84439; 84443; 84484; 85025; 85610; 92523; 93005; 93010; 93306; 97112; 97162; 97165; 99285-25; A9270; J7030; J7121; Q9967